=== PATIENT | female | born 1965 | race Caucasian/White ===

== ENCOUNTER 2017-10-09 15:29 | Emergency (ER) | payer SELFPAY ==
[2017-10-09 15:52] LABS: Bilirubin Negative (Negative); Blood, Urine Large (Negative); Clarity CLOUDY (Clear); Glucose, Urine (Dipstick) >=1000 mg/dL (Negative); Leukocyte Negative (Negative); Nitrite Negative (Negative); Protein, Urine (Dipstick) Negative (Neg-Trace); Specific Gravity, Urine 1.042 (1.002-1.036); Urobilinogen 0.2 mg/dL (0.2-1.0)
[2017-10-09 15:58] LABS: Bacteria/HPF None Seen HPF (None Seen); Hyaline Casts/LPF 0-3 HYALINE CAST LPF (0-3 Hyaline); Pathc Cast-AUWi Flag 0.72 (0-2.49); RBC/HPF GREATER THAN 50-TNTC HPF (0-3); Squamous Epithelial 0-3 HPF (0-3)
[2017-10-09] MEDS ORDERED: Ketorolac Tromethamine 30 MG/ML VIAL ONE (16:45)
[2017-10-09 16:55] LABS: #Eosinphils 0.2 thou/uL (0.0-0.7); #Monocytes 0.3 thou/uL (0.11-0.59); #Neutrophils 3.6 thou/uL (1.40-6.50); %Basophils 0.4 % (0.0-1.0); %Eosinophils 3.5 % (0.0-10.0); %Monocytes 4.5 % (0.0-10.0); %Neutrophils 58.5 % (42.0-75.0); Hemoglobin 12.6 g/dL (12.0-16.0); Mean Corpuscular HGB CONC 32.2 g/dL (32.0-36.0); Mean Corpuscular Hemoglobin 26.4 pg (27.0-31.0); Mean Platelet Volume 9.1 fL (7.4-10.4); Platelet Count 261 thou/uL (130-400); RBC Distribution Width 13.4 % (11.5-14.5); Red Blood Cell (RBC) Count 4.79 mill/uL (4.20-5.40); White Blood Cell (WBC) Count 6.1 thou/uL (4.8-10.8)
[2017-10-09 17:18] LABS: ALT (SGPT) 20 U/L (8-55); AST (SGOT) 24 U/L (5-34); Albumin 3.7 g/dL (3.5-5.0); Alkaline Phosphatase 126 U/L (40-150); Anion Gap 16 mmol/L (10-20); BUN (Urea Nitrogen) 11 mg/dL (7.0-18.7); Bilirubin, Total 0.2 mg/dL (0.2-1.2); Calc. Creatinine Clearance 0 mL/min (70-130); Calcium 9.5 mg/dL (7.8-10.44); Carbon Dioxide 20 mmol/L (22-29); Chloride 101 mmol/L (98-107); Estimated GFR-MDRD 63; Globulin 3.9 g/dL (2.4-3.5); Glucose 512 mg/dL (70-105); Lipase 23 U/L (8-78); Potassium 4.6 mmol/L (3.5-5.1); Protein, Total 7.6 g/dL (6.0-8.3); Sodium 132 mmol/L (136-145)
--- NOTE | 2017-10-09 17:43 | CT ---
ABDOMEN CT WITHOUT CONTRAST PELVIC CT WITHOUT CONTRAST 10/09/17 HISTORY: Pain. Left flank pain, radiating to the back. COMPARISON: 12/21/11. TECHNIQUE: Abdomen and pelvic CT performed without contrast. Coronal reformatted images are submitted for interp retation. FINDINGS: Lung bases demonstrate areas of scar and atelectasis. Heart size is normal. No pericardial effusion. The descending thoracic aorta and abdominal have a normal caliber. No periaortic fat stranding. Gallbladder is surgically absent. Limited evaluation of the solid organs by lack of IV contrast. Garrett ssly, no solid organ abnormalities. No gastrohepatic, retrocrural or periportal lymphadenopathy. No mesenteric mass, lymphadenopathy, jaiden e air of free fluid. Bilaterally, no hydronephrosis, nephrolithiasis, or perinephric fat stranding. Bilateral ureters have a normal caliber. No hydroureter, periureteral fat stranding or ureterolithiasis. Limited evaluation of the alimentary canal by the lack of oral contrast. No evidence of bowel obstruc tion. Normal ileocecal junction. Normal caliber appendix. Scattered fecal material in a nondistended, nondilated colon. Occasional diverticulum. No diverticulitis. PELVIC CT: The uterus and right adnexa are unremarkable. Hypodensity in the left adnexa has an attenuation coeff icient of 22 Hounsfield units and measures 2.8 x 1.6 cm. No pelvic lymphadenopathy, free air or free fluid. No lytic or blastic lesions within the osseous structures. IMPRESSION: 1. No evidence of nephrolithiasis or obstructive uropathy. 2. Hypodensity in the left adnexa likely representing complex left ovarian cyst. Followup ultras ound in 8 to 10 weeks to ensure resolution. If cyst remains, then PROGRAM SPECIALIST consultation is recommended. POS: [facility]
== END 2017-10-09 19:09 | disposition home or self-care (01) ==
LOC: ERS 15:29
DX: S39.011A Strain of muscle, fascia and tendon of abdomen, initial encounter (principal); X58.XXXA Exposure to other specified factors, initial encounter
CPT/HCPCS: 36415; 74176; 80053; 81003; 81015; 83690; 85025; 96361; 96374; J1885

== ENCOUNTER 2018-09-03 10:07 | Observation (INO) | payer SELFPAY ==
[2018-09-03] MEDS ORDERED: Aspirin Chewable 81 MG TAB ONE (10:51)
[2018-09-03] MEDS ORDERED: Ondansetron PF 4 MG/2 ML Vial ONE (10:51)
[2018-09-03] MEDS ORDERED: Nitroglycerin 0.4 MG TAB 1 EACH ONE (10:51)
--- NOTE | 2018-09-03 10:54 | RAD ---
PORTABLE CHEST: Date: 09/03/18 HISTORY: Chest pain. FINDINGS: Lungs are clear. Heart and mediastinum unremarkable. Vasculature normal. IMPRESSION: No acute findings. POS: [facility]
[2018-09-03 10:59] LABS: #Basophils 0.1 thou/uL (0.0-0.2); #Eosinphils 0.4 thou/uL (0.0-0.7); #Lymphocytes 4.1 thou/uL (1.20-3.40); #Monocytes 0.5 thou/uL (0.11-0.59); #Neutrophils 4.3 thou/uL (1.40-6.50); %Basophils 1.1 % (0.0-1.0); %Eosinophils 4.3 % (0.0-10.0); %Lymphocytes 43.6 % (21.0-51.0); %Monocytes 5.4 % (0.0-10.0); %Neutrophils 45.5 % (42.0-75.0); Hemoglobin 14.3 g/dL (12.0-16.0); Mean Corpuscular HGB CONC 32.2 g/dL (32.0-36.0); Mean Corpuscular Hemoglobin 26.4 pg (27.0-31.0); Mean Corpuscular Volume 82.1 fL (78.0-98.0); Mean Platelet Volume 10.2 fL (7.4-10.4); Platelet Count 247 thou/uL (130-400); RBC Distribution Width 14.1 % (11.5-14.5); Red Blood Cell (RBC) Count 5.42 mill/uL (4.20-5.40); White Blood Cell (WBC) Count 9.5 thou/uL (4.8-10.8)
[2018-09-03 11:27] LABS: ALT (SGPT) 19 U/L (8-55); AST (SGOT) 29 U/L (5-34); Albumin 4.2 g/dL (3.5-5.0); Alkaline Phosphatase 110 U/L (40-150); Anion Gap 17 mmol/L (10-20); BUN (Urea Nitrogen) 14 mg/dL (9.8-20.1); Bilirubin, Total 0.5 mg/dL (0.2-1.2); Calc. Creatinine Clearance 0 mL/min (70-130); Calcium 10.6 mg/dL (7.8-10.44); Carbon Dioxide 20 mmol/L (22-29); Chloride 100 mmol/L (98-107); Estimated GFR-MDRD 56; Globulin 4.4 g/dL (2.4-3.5); Glucose 430 mg/dL (70-105); Lipase 18 U/L (8-78); Protein, Total 8.6 g/dL (6.0-8.3); Sodium 132 mmol/L (136-145)
[2018-09-03] MEDS ORDERED: ISOVUE-370 76%-LOCM 1 ML ONE (12:04)
[2018-09-03] MEDS ORDERED: Nitroglycerin 2% Ointment 1 INCH/1 GM Packet ONE (12:12)
--- NOTE | 2018-09-03 12:25 | CT ---
CT ANGIO OF CHEST PERFORMED WITH IV CONTRAST ENHANCEMENT WITH 3D RECONSTRUCTIONS: Date: 09/03/18 HISTORY: Chest pain. FINDINGS: The lungs are clear of any infiltrative process. There are no pulmonary nodules identified. No pleura l effusions. Thoracic aorta is normal in caliber. Pulmonary arteries show fair opacifications. Smaller peripheral emboli are not excluded. I see no CT evidence for pulmonary embolus. Visualized liver parenchyma shows no focal findings. IMPRESSION: No CT evidence for pulmonary embolus. POS: [facility]
[2018-09-03 14:28] VITALS: BMI 42.2
[2018-09-03 14:28] LABS: Troponin I Less than 0.010 ng/mL (< 0.028)
[2018-09-03] MEDS ORDERED: Guaifenesin DM 100-10/5 ML UDCUP PO PRN (16:28)
[2018-09-03] MEDS ORDERED: Benzonatate 100 MG CAP PO PRN (16:32)
[2018-09-03] MEDS ORDERED: Nitroglycerin 0.4 MG TAB (25 Tab Bottle) SL PRN (16:32)
[2018-09-03] MEDS ORDERED: Ondansetron PF 4 MG/2 ML Vial IVP PRN (16:32)
[2018-09-03] MEDS ORDERED: Acetaminophen 500 MG TAB PO PRN (16:32)
[2018-09-03] MEDS ORDERED: hydrALAZINE 20 MG/ML VIAL SLOW IVP PRN (16:32)
[2018-09-03] MEDS ORDERED: Dextrose 50% Abboject 50 ML SYRINGE SLOW IVP PRN (17:02)
[2018-09-03] MEDS ORDERED: Dextrose 5% in Water 1,000 ML IV PRN (17:02)
[2018-09-03] MEDS ORDERED: HumaLOG 300 UNITS/3 ML VIAL SC PRN (17:02)
[2018-09-03 17:47] LABS: Troponin I Less than 0.010 ng/mL (< 0.028)
[2018-09-03] MEDS: metFORMIN 500 MG TAB PO SCH (21:09)
[2018-09-03] MEDS ORDERED: Aspirin/APAP/Caffeine Tab (Excedrin Migraine) PO PRN (21:17)
[2018-09-04] MEDS ORDERED: traMADol HCl 50 MG TAB PO PRN (00:09)
--- NOTE | 2018-09-04 01:19 | HP ---
CHIEF COMPLAINT: Chest pain. HISTORY OF PRESENT ILLNESS: The patient is a 53-year-old female with past medical history significant for obesity, type 2 diabetes mellitus diagnosed in January of 2018, and hypertension, who presented to the hospital with complaints of chest pain. The patient states that initially the chest discomfort began yesterday evening when she was washing dishes. She described it as someone sitting on her chest. Associated symptoms included nausea, she denies any shortness of breath, sweating, or dizziness. The pain did resolve on its own at that time. The patient went to bed, but throughout the night, she was awakened by similar chest pain that she describes as pressure. She presented to the ER this morning for further workup and treatment. EKG on arrival showed sinus rhythm with no acute ST or T-wave changes. Her serial troponin has been negative x2. CTA was negative for PE or acute process. She did say that her chest pain was relieved with sublingual nitroglycerin in the emergency room. The patient states that she has had a stress test years ago that was normal, but has not had any recent workup. PAST MEDICAL HISTORY: Gastroesophageal reflux disease, type 2 diabetes mellitus , hypertension, and obesity. PAST SURGICAL HISTORY: 1. Status post x2. 2. Status post cholecystectomy. CURRENT MEDICATIONS: 1. Metformin 1000 mg tablet one tablet p.o. b.i.d. 2. Lisinopril 10 mg one tablet daily. ALLERGIES: HYDROMORPHONE. FAMILY HISTORY: Positive for coronary artery disease in her mother, otherwise noncontributory. SOCIAL HISTORY: The patient denies any alcohol, tobacco, or illicit drug use. She lives with her daughter and grandson, who is 4 years old in [place]. REVIEW OF SYSTEMS: A 12-point review of systems is performed and is negative except that stated above. The patient specifically denies any fever, chills, recent illnesses, blood in urine or stool. PHYSICAL EXAMINATION: VITAL SIGNS: Blood pressure 139/86, temperature 98.2, pulse is 95, respirations 16, O2 saturation 95%. HEAD: Atraumatic, normocephalic. GENERAL: This is an obese female, resting comfortably in bed, in no acute distress. HEENT: Mucous membranes are moist. No discharge present. SKIN: Warm, dry. Negative for rash or abrasions. NECK: Trachea is midline. No JVD. No carotid bruits. CV: S1, S2. Regular rate and rhythm. No appreciable murmurs, rubs, or gallops. LUNGS: Regular respiratory rate and pattern. Clear to auscultation bilaterally. No rhonchi or wheezes. ABDOMEN: Soft. Positive bowel sounds. Nontender. EXTREMITIES: No edema. +2 DP pulses bilaterally. MUSCULOSKELETAL: No joint effusions or swelling. LABORATORY DATA: White blood cell count 9.5, RBC 5.42, hemoglobin 14.3. Chemistry, sodium of 132, potassium 5.0, chloride 100, anion gap 17, BUN 14, creatinine 1.03, glucose is 401. Troponin is negative x2. Albumin 4.2. Lipase 18. ASSESSMENT: 1. Chest pain in a patient with numerous risk factors including type 2 diabetes, hypertension, and obesity, with typical and atypical features. Her HEART score is 4. 2. Type 2 diabetes mellitus, diagnosed in January 2018, blood sugars uncontrolled in the hospital thus far. 3. Obesity. 4. Hypertension. 5. Full code status. PLAN: We will admit the patient for ACS rule out. Continue p.r.n. nitrates. We will perform a nuclear stress test to rule out reversible ischemia given her risk factors and presenting symptoms. Continue telemetry monitoring. Obtain AIc and fasting lipid panel in the morning. Job ID: [id number] [id number]
[2018-09-04 05:13] LABS: #Basophils 0.1 thou/uL (0.0-0.2); #Eosinphils 0.5 thou/uL (0.0-0.7); #Lymphocytes 3.4 thou/uL (1.20-3.40); #Monocytes 0.3 thou/uL (0.11-0.59); #Neutrophils 2.8 thou/uL (1.40-6.50); %Basophils 0.9 % (0.0-1.0); %Eosinophils 6.5 % (0.0-10.0); %Monocytes 4.6 % (0.0-10.0); Hemoglobin 13.3 g/dL (12.0-16.0); Mean Corpuscular HGB CONC 32.1 g/dL (32.0-36.0); Mean Corpuscular Hemoglobin 26.9 pg (27.0-31.0); Mean Corpuscular Volume 83.8 fL (78.0-98.0); Mean Platelet Volume 9.7 fL (7.4-10.4); Platelet Count 221 thou/uL (130-400); Red Blood Cell (RBC) Count 4.96 mill/uL (4.20-5.40)
[2018-09-04 05:35] LABS: Anion Gap 11 mmol/L (10-20); BUN (Urea Nitrogen) 14 mg/dL (9.8-20.1); Calc. Creatinine Clearance 169 mL/min (70-130); Calcium 9.5 mg/dL (7.8-10.44); Carbon Dioxide 23 mmol/L (22-29); Chloride 103 mmol/L (98-107); Estimated GFR-MDRD 85; Glucose 241 mg/dL (70-105); Sodium 133 mmol/L (136-145)
[2018-09-04] MEDS: metFORMIN 500 MG TAB PO SCH (08:30)
[2018-09-04] MEDS ORDERED: Lisinopril 10 MG TAB PO SCH (09:00)
--- NOTE | 2018-09-04 13:57 | NM ---
STRESS ONLY MYOCARDIAL PERFUSION STUDY: DATE: 09/04/2018. HISTORY: Chest pain, history of hypertension and dyslipidemia as well as diabetes mellitus. COMPARISON: 09/28/2011. FINDINGS: There is normal uptake and distribution of radiotracer seen throughout the left ventricular myocardiu m on the stress acquisition. There is no defect seen to suggest ischemia or area of scarring. The q uantitative analysis also shows no significant defect. Gated images show normal ventricular wall motion and wall thickening. The calculated left ventricula r ejection fraction is 73%. Calculated left ventricular ejection fraction on the prior study in 2011 was 56%. IMPRESSION: 1. Normal stress-only myocardial perfusion study without evidence of a defect seen to suggest ischem ia or scarring. 2. Normal left ventricular ejection fraction of 73%. POS: [facility]
[2018-09-04 16:08] VITALS: BP 115/63; TEMP 98.4
--- NOTE | 2018-09-04 16:16 | EKG ---
Test Reason : CHEST PAIN Blood Pressure : / mmHG Vent. Rate : 080 BPM Atrial Rate : 080 BPM P-R Int : 186 ms QRS Dur : 074 ms QT Int : 398 ms P-R-T Axes : 074 030 049 degrees QTc Int : 459 ms Normal sinus rhythm Low voltage QRS Borderline ECG When compared with ECG of 03-SEP-2018 10:14, (Unconfirmed) Nonspecific T wave abnormality, improved in Anterolateral leads QT has lengthened Confirmed by DR. Fiona CACERES ([id number]) on 09/04/2018 4:16:23 PM Referred By: Confirmed By:DR. Fiona CACERES
--- NOTE | 2018-09-04 18:51 | DIS ---
DATE OF ADMISSION: 09/03/2018 DATE OF DISCHARGE: 09/04/2018 ALLERGIES: HYDROMORPHONE. CHIEF COMPLAINT: Chest pain. FINAL DIAGNOSES: 1. Chest pain, atypical, acute coronary syndrome ruled out. Nuclear stress test was negative for reversible ischemia. CTA was negative for PE. 2. Uncontrolled diabetes mellitus with A1c of 12%. 3. Hypertension. 4. Gastroesophageal reflux disease. 5. Obesity. PROCEDURES PERFORMED: None. LABORATORY RESULTS: White blood cell count 7, RBC 4.96, hemoglobin 13, MCH 26.9. Sodium 133, potassium 4, chloride 103, BUN 14, creatinine 0.72. Hemoglobin A1c 12%. Troponin negative x2. IMAGING RESULTS: CTA showed some lungs clear of any infiltrative process. No pulmonary nodules identified. No pleural effusions and no CT evidence for pulmonary embolism. Chest x-ray showed no acute findings. Myocardial perfusion study showed normal stress thallium myocardial perfusion study without evidence of a defect seen to suggest ischemia or scarring. Normal left ventricular ejection fraction of 73%. No evidence to suggest ischemia or scar. CONSULTATIONS: None. HOSPITAL COURSE: The patient is a 53-year-old female with past medical history significant for obesity, type 2 diabetes mellitus, and hypertension, who presented to the hospital with complaints of chest pain. She states that the chest pain initially came on when she was washing dishes. She described it as pressure. She also had some associated nausea. She denies any shortness of breath, swelling, or dizziness. The pain resolved, but came back after she had been asleep overnight. Apparently, the pain awakened her from sleep. She presented to the ER the following morning for further workup and treatment. EKG on arrival showed normal sinus rhythm with no acute ST or T-wave changes. Her serial troponin was negative. CTA was negative for PE or acute process. As mentioned above, CTA was negative. Her myocardial perfusion imaging study was negative for reversible ischemia. The patient's blood sugars were uncontrolled during her stay. Her A1c was 12%. The patient's chest pain has resolved. She denies any headache, nausea, or vomiting. She has no shortness of breath. She has ambulated in the room without issue. CONDITION AT DISCHARGE: Stable. PHYSICAL EXAMINATION: VITAL SIGNS: Blood pressure 115/63. The patient is afebrile, pulse is 82, O2 saturation is 96% on room air, respirations are 16. GENERAL: The patient is an obese female, resting comfortably in bed. No acute distress. HEENT: Mucous membranes are moist. No discharge present. SKIN: Warm and dry. Negative for rash or abrasions. NECK: Trachea is midline. No JVD. No carotid bruits. CV: S1, S2. Regular rhythm. No appreciable murmurs, rubs, or gallops. LUNGS: Regular respiratory rate and pattern. Clear to auscultation bilaterally. No rhonchi or wheezes. ABDOMEN: Soft, positive bowel sounds. Nontender. EXTREMITIES: No edema. +2 DP pulses bilaterally. MUSCULOSKELETAL: No joint effusions or swelling. DISCHARGE MEDICATIONS: 1. Metformin 1000 mg p.o. b.i.d. 2. Lisinopril 10 mg one p.o. daily. 3. The addition of glyburide will be a new medication for her of 2.5 mg tablet one tablet p.o. daily. DISCHARGE DISPOSITION: Home. PLAN: The patient has been counseled extensively regarding her diabetes management. She has already made an appointment with her primary care physician to discuss implementation of insulin. She has been counseled on the importance of a diabetic diet. She will also benefit from aspirin and statin given her diabetes diagnosis. Job ID: [id number]
--- NOTE | 2018-09-05 16:35 | EKG ---
Test Reason : CP Blood Pressure : / mmHG Vent. Rate : 103 BPM Atrial Rate : 103 BPM P-R Int : 174 ms QRS Dur : 080 ms QT Int : 306 ms P-R-T Axes : 007 043 096 degrees QTc Int : 400 ms Sinus tachycardia Confirmed by ROSA CORRALES DO ([id number]), newspaper photo editor NATHAN DEUTSCH ([id number]) on 09/05/2018 4:34:48 PM Referred By: Confirmed By:ROSA CORRALES DO
== END 2018-09-04 17:16 | disposition home or self-care (01) ==
LOC: ERS 10:07 → 2SW 12:42
PROVIDERS: ADMIT Family Medicine; ATTEND Family Medicine
DX: R07.89 Other chest pain (principal); E11.9 Type 2 diabetes mellitus without complications; I10 Essential (primary) hypertension; K21.9 Gastro-esophageal reflux disease without esophagitis; E66.9 Obesity, unspecified; Z68.41 Body mass index [BMI] 40.0-44.9, adult; Z79.84 Long term (current) use of oral hypoglycemic drugs; Z79.899 Other long term (current) drug therapy
CPT/HCPCS: 36415; 36416; 71045; 71275; 78452; 80048; 80053; 83036; 83690; 84484; 85025; 93005; 93010; 93017; 96374; A9500; G0378; J0153; J2405; Q9966

== ENCOUNTER 2019-01-28 06:49 | Inpatient (IN) | payer SELFPAY ==
[2019-01-28 08:37] LABS: Troponin I Less than 0.010 ng/mL (< 0.028)
[2019-01-28] MEDS ORDERED: Ondansetron ODT 4 MG TAB PO PRN (09:12)
[2019-01-28] MEDS ORDERED: Dextrose 50% Abboject 50 ML SYRINGE SLOW IVP PRN (09:21)
[2019-01-28] MEDS ORDERED: Dextrose 5% in Water 1,000 ML IV PRN (09:21)
[2019-01-28] MEDS: Sodium Chloride 0.9% 1,000 ML IV SCH (09:45)
--- NOTE | 2019-01-28 10:07 | HP ---
PRIMARY CARE PHYSICIAN: Priscilla Corral MD CHIEF COMPLAINT: Chest pain. HISTORY OF PRESENT ILLNESS: Ms. Gonzalez is a 53-year-old woman with a known history of hypertension and diabetes, who presented to the emergency department at [place] with complaints of chest pain 10/10 that started at 2:30 a.m. this morning while playing cards. The patient states the pain started on the right side of her chest and radiated across the left and was associated with epigastric pain as well as nausea. The patient began dry heaving and denies any vomiting. She states the pain remained constant until she arrived to [place] and was given nitroglycerin as well as aspirin. The patient did drop her blood pressure to the low 100s and high 90s. Therefore, the nitro paste was discontinued. The patient states it did help to ease her pain down toward 4/10, but she has carried on with constant pain described as sharp and worse with inspiration. She did undergo a CT angiogram of the chest, which showed no evidence of PE or other intrathoracic abnormalities. She states the pain is much worse than the pain she has experienced in the past. She was seen in August 2018 with chest pain at which time she underwent a stress test, which was unremarkable. She had an EF estimated at 73%. The patient states she has been feeling well on recent days and denies having any vomiting or changes with her stools. She has had a normal appetite and states she does struggle to maintain a proper diet due to her income. She has been struggling to control her diabetes and has been working with her primary care physician. Currently, she is on metformin 1000 mg twice daily and glyburide 2.5 mg daily. She states she is compliant with her medications. She has not noted any recent cough or hemoptysis. No fevers, chills, or sweats. Has otherwise felt well in herself in recent days. REVIEW OF SYSTEMS: All other review of systems are negative. She has undergone trending of her troponins, which have all been negative. Her BNP was checked as well and this was normal at less than 10. LFTs are unremarkable. Full blood count normal. PAST MEDICAL HISTORY: 1. Diabetes. 2. Hypertension. 3. Obesity. PAST SURGICAL HISTORY: 1. Cholecystectomy. 2. x2. SOCIAL HISTORY: The patient is said to be a former drug user and former tobacco user. Today, the patient denies drinking any alcohol, using any drugs, and states she does not smoke. ALLERGIES: HYDROMORPHONE. CURRENT MEDICATIONS: 1. Lisinopril. 2. Metformin. 3. Glyburide. PHYSICAL EXAMINATION: GENERAL: The patient appears obese, well developed, and in no acute distress. VITAL SIGNS: Temperature 97.9, pulse respirations 18, O2 saturation 96% on room air, blood pressure 131/79. HEENT: Normocephalic and atraumatic. Pupils are equal, round, and reactive to light. Sclerae without icterus. Oropharynx is clear. NECK: Supple. LUNGS: Clear to auscultation bilaterally without any wheezes, rales, or rhonchi. No chest wall tenderness with palpation. CARDIAC: Regular rate and rhythm. ABDOMEN: Soft. Epigastric discomfort with palpation. No guarding or rigidity. No renal angle tenderness. EXTREMITIES: No lower leg swelling or edema. NEUROLOGIC: Alert and oriented x3. SKIN: Without rash or jaundice. LABORATORY DATA: Investigations as mentioned above. IMPRESSION AND PLAN: Ms. Gonzalez is a 53-year-old woman, who has been referred for management of the following. 1. Chest pain. She is under undergoing investigations for ACS rule out. Cardiac enzymes are negative. EKG done in the emergency department at [place], which showed normal sinus rhythm with a heart rate of 90, no ST changes. T-waves were inverted on lead III and aVF. 2. The patient has undergone recent stress test in August. Therefore, we will not repeat a stress test. Given the fact that her pain is persistent and worsening with frequent admissions in the past, we will place a consultation to Cardiology. It is, however, likely that her pain is more GI related; however, she does have risk factors. We will also check urine drug screen. 3. Nausea and vomiting. This has resolved. She does still have epigastric discomfort. LFTs unremarkable. We will add on a lipase. 4. Gastrointestinal prophylaxis. 5. Deep venous thrombosis prophylaxis with mechanical sequential compression devices. The patient is ambulatory. 6. Code status full. Her surrogate decision maker is her daughter, Eunice Sparrow. The patient's case to be discussed with Dr. Levin for further recommendations. Job ID: [id number]
[2019-01-28 10:10] LABS: Alcohol Less than 10 mg/dL (Less than 10); Lipase 20 U/L (8-78); Magnesium 1.9 mg/dL (1.6-2.6)
[2019-01-28 10:21] LABS: Troponin I Less than 0.010 ng/mL (< 0.028)
[2019-01-28 11:30] VITALS: BMI 43.2
[2019-01-28] MEDS: Acetaminophen 325 MG TAB PO PRN (11:50)
[2019-01-28 12:58] LABS: Troponin I Less than 0.010 ng/mL (< 0.028)
[2019-01-28 14:46] LABS: Bilirubin Negative (Negative); Blood, Urine Negative (Negative); Clarity Clear (Clear); Glucose, Urine (Dipstick) Greater than 1000 mg/dL (Negative); Leukocyte Negative Leu/uL (Negative); Nitrite Negative (Negative); Protein, Urine (Dipstick) Negative (Neg-Trace); Squamous Epithelial 0-3 HPF (0-3); Urobilinogen Normal mg/dL (Less than 2); WBC/HPF 0-3 HPF (0-3)
[2019-01-28 14:55] LABS: Bacteria/HPF Rare-Few HPF (None Seen); Yeast-Budding 1+ HPF (None Seen)
[2019-01-28 15:00] LABS: Urine Culture Reflex No No
[2019-01-28 15:04] LABS: Amphetamine Not Detected (NotDetected); Barbiturates Screen Not Detected (NotDetected); Benzodiazepine Screen Not Detected (NotDetected); Cocaine Metabolite Screen Not Detected (NotDetected); Medtox Control Line Valid? VALID (VALID); Medtox Reader # READER 1; Methadone Not Detected (NotDetected); Methamphetamine Not Detected (NotDetected); Opiate Screen Not Detected (NotDetected); Oxycodone Screen Not Detected (NotDetected); Phencyclidine (PCP) Not Detected (NotDetected); THC/Cannabinoid Screen Not Detected (NotDetected); Tricyclic Screen Not Detected (NotDetected)
[2019-01-28] MEDS: HumaLOG 300 UNITS/3 ML VIAL SC PRN ×2 (17:30→21:52)
[2019-01-28] MEDS ORDERED: Ketorolac Tromethamine 30 MG/ML VIAL IVP SCH (19:45)
[2019-01-28] MEDS: Famotidine/PF 20 mg/2ml Vial SLOW IVP SCH (19:52)
[2019-01-28] MEDS ORDERED: Communication Order-Pharmacy FS SCH (21:15)
[2019-01-29] MEDS: Sodium Chloride 0.9% 1,000 ML IV SCH (01:32)
--- NOTE | 2019-01-29 04:22 | CON ---
DATE OF CONSULTATION: HISTORY: Susu Gonzalez is a 53-year-old white female, who was admitted with chest discomfort. In September 2011, she was admitted with chest discomfort and Cardiolite test was normal. She also was admitted in August 2018 with chest pain and again , a Cardiolite scan was normal. Then, early this morning, she was playing cards at 2:30 a.m. and began to have chest pain, 10/10. The pain was pleuritic in nature, went from the right side of her chest to the left side. This was associated with diaphoresis, nausea, and retching. She denied any shortness of breath. Went to the hospital in [place] and was given nitroglycerin, topical nitrates, and a pain patch. She states that the discomfort eased from 10/10 to 4/10 at that time with the intense pain lasting continuously for 3-1/2 hours. She states that she has continued to have intermittent chest discomfort while being here with each episode lasting approximately 10 minutes. Cardiac enzymes have been unremarkable. PAST MEDICAL HISTORY: Diabetes and hypertension. She denies any history of hypercholesterolemia. Obesity. PAST SURGICAL HISTORY: Cholecystectomy and x2. SOCIAL HISTORY: She does not smoke or drink. She apparently was a drug abuser in the past. MEDICATIONS: 1. Metformin 750 mg daily. 2. Lisinopril 10 mg daily. 3. Glyburide. ALLERGIES: HYDROMORPHONE (DILAUDID). REVIEW OF SYSTEMS: A 10-point review of systems is otherwise unremarkable. PHYSICAL EXAMINATION: VITAL SIGNS: Blood pressure 124/84 and pulse of 84. HEENT: PERRL. NECK: Supple. CHEST: Clear. CARDIAC: S1 and S2 normal without any S3, S4, or murmurs. There was no rub. ABDOMEN: Obese. Normal bowel sounds. No tenderness. EXTREMITIES: Revealed no clubbing, cyanosis, or edema. NEUROLOGIC: Grossly intact. SKIN: Warm and dry. MUSCULOSKELETAL: Revealed no palpable chest wall tenderness. LABORATORY DATA: EKG reveals normal sinus rhythm and is unremarkable. Cardiac enzymes with troponin I x5 are all normal. Hemoglobin 14.1, hematocrit 43.9, white count 8700, and platelets 240,000. D-dimer 0.33. BNP less than 10.0. Sodium 137, potassium 4.1, chloride 100, carbon dioxide 23, BUN 11, creatinine 0.93, and glucose 432. IMPRESSION: Atypical chest discomfort with pleuritic chest pain lasting for hours with negative cardiac enzymes. At the present time with a deep breath, she does not appear to have any worsening of her discomfort. She also has no positional change in the pressure and I doubt that this represents pericarditis. However, this is her second admission in the last five months for chest pain. She also was admitted in September 2011 with chest discomfort. She has had two normal Cardiolite. With multiple admissions for chest discomfort, even though her current symptoms appear not be cardiac in nature, it probably would be prudent to have her undergo cardiac catheterization with multiple cardiac risk factors. We discussed the risks of catheterization including , myocardial infarction, dye reaction, vascular injury, CVA, transfusion, limb loss, renal loss, etc. Also risks of intervention with PTCA and stent placement were discussed including , myocardial infarction, emergent CABG, restenosis, stent thrombosis, vessel perforation, etc. She has no history of gastrointestinal bleeding or stroke and has no upcoming surgical procedures. We did discuss the absolute need to take Plavix for one year, which she agrees to do and therefore, a drug-eluting stent will be placed if required. Job ID: [id number]
[2019-01-29 05:17] LABS: #Eosinphils 0.5 thou/uL (0.0-0.7); #Lymphocytes 3.1 thou/uL (1.20-3.40); #Monocytes 0.4 thou/uL (0.11-0.59); #Neutrophils 2.6 thou/uL (1.40-6.50); %Basophils 0.7 % (0.0-1.0); %Eosinophils 7.1 % (0.0-10.0); %Lymphocytes 46.5 % (21.0-51.0); %Neutrophils 39.6 % (42.0-75.0); Hemoglobin 12.3 g/dL (12.0-16.0); Mean Corpuscular HGB CONC 32.4 g/dL (32.0-36.0); Mean Corpuscular Hemoglobin 27.3 pg (27.0-31.0); Mean Corpuscular Volume 84.5 fL (78.0-98.0); Mean Platelet Volume 10.1 fL (7.4-10.4); Platelet Count 193 thou/uL (130-400); RBC Distribution Width 13.2 % (11.5-14.5); White Blood Cell (WBC) Count 6.6 thou/uL (4.8-10.8)
[2019-01-29 05:46] LABS: Anion Gap 10 mmol/L (10-20); BUN (Urea Nitrogen) 18 mg/dL (9.8-20.1); Calc. Creatinine Clearance 170 mL/min (70-130); Calcium 9.2 mg/dL (7.8-10.44); Carbon Dioxide 24 mmol/L (22-29); Cardiac Risk 4.7 (Less than 4.5); Chloride 103 mmol/L (98-107); Cholesterol 187 mg/dl (< 200 Desired); Estimated GFR-MDRD 84; Glucose 281 mg/dL (70-105); HDL Cholesterol 40 mg/dL (>60 Neg Risk); LDL Cholesterol, Calculated 115 mg/dL; Potassium 4.1 mmol/L (3.5-5.1); Sodium 133 mmol/L (136-145); Triglycerides 162 mg/dL (Less than 150)
[2019-01-29] MEDS ORDERED: Sodium Chloride 0.9% 1,000 ML IV SCH ×2 (06:00→15:12)
[2019-01-29] MEDS: Lisinopril 10 MG TAB PO SCH (06:14)
[2019-01-29] MEDS: Famotidine 20 MG TAB PO SCH ×2 (06:14→22:29)
[2019-01-29] MEDS ORDERED: Heparin 10,000 UNITS/1 ML VIAL ONE (07:44)
[2019-01-29] MEDS ORDERED: Lidocaine 1% (PF) 30 ML VIAL ONE (07:45)
[2019-01-29] MEDS: Famotidine/PF 20 mg/2ml Vial SLOW IVP SCH ×2 (09:00→21:25)
[2019-01-29] MEDS ORDERED: Iopamidol 370 76% 100 ML VIAL ONE (14:16)
[2019-01-29] MEDS ORDERED: Midazolam HCl 2 mg/2 ml Vial ONE (14:22)
[2019-01-29] MEDS ORDERED: Fentanyl 100 MCG/2 ML VIAL ONE (14:22)
[2019-01-29] MEDS ORDERED: Nitroglycerin 100MG/250ML BOT 250 ML ONE (14:40)
[2019-01-29] MEDS ORDERED: Protamine Sulfate 50 MG/5 ML VIAL ONE (14:53)
[2019-01-29] MEDS ORDERED: Aspirin 81 mg Enteric Coated Tablet PO SCH (15:00)
[2019-01-29] MEDS ORDERED: Diltiazem HCl SR 60 mg Capsule PO SCH (15:00)
[2019-01-29] MEDS ORDERED: Sodium Chloride 0.9% 200 ML IV PRN (15:11)
[2019-01-29] MEDS ORDERED: Nitroglycerin 0.4 MG TAB (25 Tab Bottle) SL PRN (15:11)
[2019-01-29] MEDS ORDERED: ISOVUE-370 76%-LOCM 1 ML ONE (16:06)
[2019-01-29] MEDS ORDERED: Labetalol HCl 100 MG/20 ML VIAL ONE (16:34)
--- NOTE | 2019-01-29 16:41 | CT ---
CT BRAIN WITHOUT CONTRAST: HISTORY: Expressive aphasia. Left-sided paralysis FINDINGS: No evidence of acute infarct, hemorrhage, midline shift or abnormal extra-axial fluid collections is seen. The ventricular size is appropriate and the basilar cisterns are patent. The bony calvarium is intact. The visualized paranasal sinuses and mastoid air cells are well aerated. IMPRESSION: No CT evidence of acute intracranial process. Discussed over the phone with ER physician Dr. Ames at 4:38 PM
[2019-01-29 17:02] LABS: INR-International Normal Ratio 0.9; Prothrombin Time 12.5 SEC (12.0-14.7)
[2019-01-29 17:03] LABS: PTT 21.8 SEC (22.9-36.1)
[2019-01-29] MEDS ORDERED: Ziprasidone 20 MG VIAL IM PRN (17:40)
[2019-01-29] MEDS ORDERED: Labetalol HCl 100 MG/20 ML VIAL SLOW IVP PRN ×2 (17:43→17:59)
[2019-01-29] MEDS ORDERED: Lorazepam 1 MG TAB PO PRN (17:43)
[2019-01-29] MEDS ORDERED: Ziprasidone 20 MG VIAL IM SCH (17:45)
[2019-01-29] MEDS ORDERED: hydrALAZINE 20 MG/ML VIAL ONE (17:50)
[2019-01-29] MEDS: Lorazepam 2 MG/ML VIAL SLOW IVP PRN (17:54)
[2019-01-29] MEDS ORDERED: Lorazepam 2 MG/ML VIAL ONE (17:54)
--- NOTE | 2019-01-29 18:14 | CT ---
CT ANGIOGRAM BRAIN WITH IV CONTRAST AND 3D RECONSTRUCTIONS: CT ANGIOGRAM NECK WITH IV CONTRAST AND 3D RECONSTRUCTIONS: HISTORY: Expressive aphasia and left-sided paralysis. The patient is not following commands. The patient is post heart catheterization today. COMPARISON: Noncontrast CT head also obtained on the date prior to this exam. FINDINGS: There is artifact seen at the base of the neck, which limits evaluation of the arterial vessels in th is region. Primarily the origin of the left vertebral artery, although this does appear grossly roque nt. The right vertebral artery is patent and dominant. There is a normal arrangement of the great vessels at the aortic arch, which are patent. A portion o f the right subclavian artery is obscured using dense contrast in the right subclavian. The bilateral common carotid, as well as the bilateral internal and external carotid arteries are pat ent. Minimal vascular calcifications are seen at the carotid artery bifurcation on the right. The bilateral middle cerebral and anterior cerebral arteries are patent without a focal stenosis or b ranch occlusion. The anterior communicating artery is visualized and appears patent. The vertebrobasilar arteries are patent. Bilateral posterior cerebral arteries are patent. No aneurysm is seen within the limitations of the technique of this exam. IMPRESSION: 1. The bilateral carotid arteries are patent. 2. No focal stenosis or branch occlusion is seen involving the [place] or vertebrobasil ar system. 3. The above findings were discussed with Dr. Ames in the emergency department on 01/29/2019 at 1708 hours. POS: [facility]
[2019-01-29] MEDS ORDERED: Lorazepam 2 MG/ML VIAL SLOW IVP SCH (20:15)
[2019-01-29] MEDS: HumaLOG 300 UNITS/3 ML VIAL SC PRN (21:25)
[2019-01-29] MEDS: Ondansetron PF 4 MG/2 ML Vial IVP PRN (21:25)
[2019-01-29] MEDS: Atorvastatin Calcium 40 MG TAB PO SCH (21:44)
[2019-01-29] MEDS: Acetaminophen 650 MG Suppository PR PRN (23:59)
[2019-01-30] MEDS: Piperacillin/Tazobactam 4.5 GM in Sodium Chloride 0.9% 100 ML IVPB SCH ×4 (01:27→21:14)
[2019-01-30] MEDS ORDERED: Labetalol HCl 100 MG/20 ML VIAL SLOW IVP SCH (02:00)
[2019-01-30] MEDS: Vancomycin HCl 1.75 GM in Sodium Chloride 0.9% 500 ML IVPB SCH ×2 (02:09→14:47)
[2019-01-30] MEDS ORDERED: Vancomycin HCl 1.75 GM in Sodium Chloride 0.9% 250 ML 300 ML IVPB SCH (03:00)
[2019-01-30 04:56] LABS: Lactic Acid 2.9 mmol/L (0.5-2.2)
[2019-01-30] MEDS: Acetaminophen 650 MG Suppository PR PRN ×2 (06:11→21:13)
[2019-01-30] MEDS: HumaLOG 300 UNITS/3 ML VIAL SC PRN ×2 (06:11→12:11)
[2019-01-30] MEDS: Aspirin 81 mg Enteric Coated Tablet PO SCH (07:54)
[2019-01-30] MEDS: Famotidine 20 MG TAB PO SCH ×2 (07:54→21:14)
[2019-01-30] MEDS: Lisinopril 10 MG TAB PO SCH (07:54)
--- NOTE | 2019-01-30 08:05 | PDOC.HOSPP ---
- Subjective Encounter Date: 01/29/19 Encounter Time: 17:00 Subjective: Ms. Gonzalez was seen in due to a code green . She recently returned from cardiac cath. After being on the floor for about 45 minutes, she became unresponsive, and staring to to the right. She would not move her left upper extremity. - Objective Vital Signs & Weight: Vital Signs (12 hours) Temp Pulse BP 01/30/19 07:26 100.3 F H 01/30/19 05:30 101.8 F H 01/30/19 01:52 108 H 208/133 H 01/30/19 01:00 100.6 F H 01/29/19 23:28 101.8 F H 01/29/19 23:22 108 H 208/133 H Weight Weight 257 lb 15.053 oz Most Recent Monitor Data Heart Rate from ECG 101 NIBP 167/102 NIBP BP-Mean 123 Respiration from ECG 29 SpO2 93 I&O: 01/29/19 01/30/19 01/31/19 06:59 06:59 06:59 Intake Total 2191 1304 Output Total 925 Balance 2191 379 Result Diagrams: 01/29/19 04:49 01/29/19 04:49 Additional Labs: Accuchecks 01/29/19 01/29/19 01/29/19 17:59 16:21 11:17 POC Glucose 341 H 237 H 273 H ROS - Medication Medications: Active Medications Generic Name Dose Route Start Last Admin Trade Name Freq PRN Reason Stop Dose Admin Acetaminophen 650 mg 01/28/19 09:12 01/28/19 11:50 Tylenol PO 650 mg Q4H PRN Administration Headache/Fever/Mild Pain (1-3) Acetaminophen 650 mg 01/28/19 09:12 01/30/19 06:11 Tylenol [place] 650 mg Q4H PRN Administration Headache/Fever/Mild Pain (1-3) Aspirin 81 mg 01/30/19 09:00 01/30/19 07:54 Ecotrin PO Not Given DAILY [facility] Atorvastatin Calcium 40 mg 01/29/19 21:00 01/29/19 21:44 Lipitor PO Not Given HS [facility] Diltiazem HCl 180 mg 01/30/19 09:00 01/30/19 07:54 Cardizem Cd PO Not Given DAILY [facility] Famotidine 20 mg 01/28/19 21:00 01/29/19 21:25 Pepcid SLOW IVP 20 mg Q12HR CH[facility]STAL Administration Famotidine 20 mg 01/29/19 09:00 01/30/19 07:54 Pepcid PO Not Given BID [facility] Piperacillin Sod/Tazobactam 100 mls @ 200 mls/hr 01/30/19 02:00 01/30/19 01: 27 Sod 4.5 gm/ Sodium Chloride IVPB 100 mls 0200,0800,1400,2000 [facility]AL Administration Vancomycin HCl 1.75 gm/ Sodium 500 mls @ 250 mls/hr 01/30/19 03:00 01/30/19 02:09 Chloride IVPB 500 mls 0300,1500 [facility] Administration Insulin Human Lispro 0 units 01/28/19 09:21 01/30/19 06:11 Humalog SC 4 units .MILD SLIDING SCALE PRN Administration Mild Correctional Scale Insulin Human Lispro 0 units 01/28/19 09:21 01/29/19 21:25 Humalog SC 5 unit .BEDTIME SLIDING SC PRN Administration Bedtime Correctional Scale Isosorbide Mononitrate 30 mg 01/30/19 09:00 01/30/19 07:54 Imdur Er PO Not Given DAILY [facility] Labetalol HCl 20 mg 01/29/19 17:59 01/29/19 23:22 Normodyne SLOW IVP 4 ml Q4H PRN Administration SBP>180 Lisinopril 10 mg 01/29/19 09:00 01/30/19 07:54 Zestril PO Not Given DAILY [facility] Lorazepam 1 mg 01/29/19 19:15 01/29/19 17:54 Ativan SLOW IVP 1 mg Q4H PRN Administration Agitation Ondansetron HCl 4 mg 01/28/19 09:12 01/29/19 21:25 Zofran IVP 4 mg Q6H PRN Administration Nausea/Vomiting Sodium Chloride 10 ml 01/28/19 09:12 01/29/19 21:23 Flush - Normal Saline IVF 10 ml Q12HR PRN Administration Saline Flush - Exam Eye: PERRL, anicteric sclera Heart: RRR, no murmur, no gallops, no rubs, normal peripheral pulses Respiratory: CTAB, no wheezes, no rales, no ronchi, normal chest expansion Gastrointestinal: soft, non-tender, non-distended, normal bowel sounds Extremities: no edema Neurological: speech deficit (Aphasic, with left sided neglect,) Hosp A/P (1) Altered mental status Code(s): R41.82 - ALTERED MENTAL STATUS, UNSPECIFIED Status: Acute (2) Hypertension Code(s): I10 - ESSENTIAL (PRIMARY) HYPERTENSION Status: Acute (3) Coronary artery disease Code(s): I25.10 - ATHSCL HEART DISEASE OF [place] CORONARY ARTERY W/O ANG PCTRS Status: Acute (4) Diabetes mellitus type 2 in obese Code(s): E11.69 - TYPE 2 DIABETES MELLITUS WITH OTHER SPECIFIED COMPLICATION; E66.9 - OBESITY, UNSPECIFIED Status: Acute - Plan * Altered mental status- feared acute CVA - patient was sent for stat CT scan of the brain, and well as CTA- these were negative. While in CT scan the patient became agitated and was moving all extremities. She also began to yell. The decision was made not to give TPA, due to the recent cardiac cath, and access to an artery, her elevated blood pressure, and that she was beginning to show improvement * She will be placed in the IMCU for closer monitoring * HTN- uncontrolled- will continue Cardizem and Lisinopril,as well as PRN medications * CAD- managed medically, and continue as per Cardiology recommendations * DM- continue SSI * Altered mental status- ? etiology- but it does not appear to be cerebral vascular in origin- will consider Neurology consult depending on how she is in the AM
[2019-01-30] MEDS: Famotidine/PF 20 mg/2ml Vial SLOW IVP SCH ×2 (08:24→21:14)
[2019-01-30 09:25] LABS: Anion Gap 20 mmol/L (10-20); BUN (Urea Nitrogen) 12 mg/dL (9.8-20.1); Calc. Creatinine Clearance 146 mL/min (70-130); Calcium 10.3 mg/dL (7.8-10.44); Carbon Dioxide 16 mmol/L (22-29); Chloride 103 mmol/L (98-107); Estimated GFR-MDRD 71; Glucose 280 mg/dL (70-105); Potassium 4.8 mmol/L (3.5-5.1); Sodium 134 mmol/L (136-145)
[2019-01-30 09:46] LABS: Hemoglobin 15.9 g/dL (12.0-16.0); Mean Corpuscular HGB CONC 33.7 g/dL (32.0-36.0); Mean Corpuscular Hemoglobin 27.9 pg (27.0-31.0); Mean Corpuscular Volume 82.8 fL (78.0-98.0); Mean Platelet Volume 10.3 fL (7.4-10.4); Platelet Count 227 thou/uL (130-400); RBC Distribution Width 13.6 % (11.5-14.5); Red Blood Cell (RBC) Count 5.71 mill/uL (4.20-5.40); White Blood Cell (WBC) Count 11.6 thou/uL (4.8-10.8)
--- NOTE | 2019-01-30 10:56 | PDOC.HOSPP ---
- Subjective Encounter Date: 01/30/19 Encounter Time: 10:51 Subjective: Ms. Gonzalez was seen today in follow-up of altered mental status. She is aphasic again today. She will not follow commands. - Objective Vital Signs & Weight: Vital Signs (12 hours) Temp Pulse BP Pulse Ox 01/30/19 08:00 94 L 01/30/19 07:26 100.3 F H 01/30/19 05:30 101.8 F H 01/30/19 01:52 108 H 208/133 H 01/30/19 01:00 100.6 F H 01/29/19 23:28 101.8 F H 01/29/19 23:22 108 H 208/133 H Weight Weight 257 lb 15.053 oz Most Recent Monitor Data Heart Rate from ECG 97 NIBP 158/98 NIBP BP-Mean 118 Respiration from ECG 34 SpO2 94 I&O: 01/29/19 01/30/19 01/31/19 06:59 06:59 06:59 Intake Total 2191 1304 Output Total 925 Balance 2191 379 Result Diagrams: 01/30/19 08:56 01/30/19 08:56 Additional Labs: Accuchecks 01/29/19 01/29/19 01/29/19 17:59 16:21 11:17 POC Glucose 341 H 237 H 273 H ROS - Medication Medications: Active Medications Generic Name Dose Route Start Last Admin Trade Name Freq PRN Reason Stop Dose Admin Acetaminophen 650 mg 01/28/19 09:12 01/28/19 11:50 Tylenol PO 650 mg Q4H PRN Administration Headache/Fever/Mild Pain (1-3) Acetaminophen 650 mg 01/28/19 09:12 01/30/19 06:11 Tylenol [place] 650 mg Q4H PRN Administration Headache/Fever/Mild Pain (1-3) Aspirin 81 mg 01/30/19 09:00 01/30/19 07:54 Ecotrin PO Not Given DAILY [facility] Atorvastatin Calcium 40 mg 01/29/19 21:00 01/29/19 21:44 Lipitor PO Not Given HS [facility] Diltiazem HCl 180 mg 01/30/19 09:00 01/30/19 07:54 Cardizem Cd PO Not Given DAILY [facility] Famotidine 20 mg 01/28/19 21:00 01/30/19 08:24 Pepcid SLOW IVP 20 mg Q12HR [facility]STAL Administration Famotidine 20 mg 01/29/19 09:00 01/30/19 07:54 Pepcid PO Not Given BID [facility] Piperacillin Sod/Tazobactam 100 mls @ 200 mls/hr 01/30/19 02:00 01/30/19 08: 23 Sod 4.5 gm/ Sodium Chloride IVPB 100 mls 0200,0800,1400,2000 CH[facility]STAL Administration Vancomycin HCl 1.75 gm/ Sodium 500 mls @ 250 mls/hr 01/30/19 03:00 01/30/19 02:09 Chloride IVPB 500 mls 0300,1500 [facility]STAL Administration Insulin Human Lispro 0 units 01/28/19 09:21 01/30/19 06:11 Humalog SC 4 units .MILD SLIDING SCALE PRN Administration Mild Correctional Scale Insulin Human Lispro 0 units 01/28/19 09:21 01/29/19 21:25 Humalog SC 5 unit .BEDTIME SLIDING SC PRN Administration Bedtime Correctional Scale Isosorbide Mononitrate 30 mg 01/30/19 09:00 01/30/19 07:54 Imdur Er PO Not Given DAILY [facility] Labetalol HCl 20 mg 01/29/19 17:59 01/29/19 23:22 Normodyne SLOW IVP 4 ml Q4H PRN Administration SBP>180 Lisinopril 10 mg 01/29/19 09:00 01/30/19 07:54 Zestril PO Not Given DAILY [facility] Lorazepam 1 mg 01/29/19 19:15 01/29/19 17:54 Ativan SLOW IVP 1 mg Q4H PRN Administration Agitation Ondansetron HCl 4 mg 01/28/19 09:12 01/29/19 21:25 Zofran IVP 4 mg Q6H PRN Administration Nausea/Vomiting Sodium Chloride 10 ml 01/28/19 09:12 01/29/19 21:23 Flush - Normal Saline IVF 10 ml Q12HR PRN Administration Saline Flush - Exam Heart: RRR, no murmur, no gallops, no rubs, normal peripheral pulses Respiratory: CTAB, no wheezes, no rales, no ronchi, normal chest expansion, no tachypnea Gastrointestinal: soft, non-tender, non-distended, normal bowel sounds, no palpable masses, no hepatomegaly Extremities: no cyanosis, no edema Neurological: speech deficit (aphasia) Musculoskeletal: normal tone, no muscle wasting Psychiatric: flat affect Hosp A/P (1) Altered mental status Code(s): R41.82 - ALTERED MENTAL STATUS, UNSPECIFIED Status: Acute (2) Hypertension Code(s): I10 - ESSENTIAL (PRIMARY) HYPERTENSION Status: Acute (3) Coronary artery disease Code(s): I25.10 - ATHSCL HEART DISEASE OF [place] CORONARY ARTERY W/O ANG PCTRS Status: Acute (4) Diabetes mellitus type 2 in obese Code(s): E11.69 - TYPE 2 DIABETES MELLITUS WITH OTHER SPECIFIED COMPLICATION; E66.9 - OBESITY, UNSPECIFIED Status: Acute - Plan * Altered mental status- ? TIA- agree with repeat CT scan - Neurology has been consulted, and work-up is in progress. * Continue to monitor in the ICU * Fever- agree with empiric antibiotics, and blood cultures are pending * IF the CT scan is negative consider ID consult * HTN- uncontrolled- will increase the dose of Lisinopril- and continue PRN's * CAD- managed medically, and continue as per Cardiology recommendations * DM- continue SSI
[2019-01-30] MEDS ORDERED: cloNIDine 0.2mg/24 Hour PATCH TD SCH (12:00)
[2019-01-30] MEDS: Lorazepam 2 MG/ML VIAL SLOW IVP PRN (13:12)
--- NOTE | 2019-01-30 13:17 | CT ---
EXAM: CT brain without contrast HISTORY: Confusion and left-sided weakness COMPARISON: 01/29/2019 TECHNIQUE: Multiple contiguous axial images were obtained and a CT of the brain without contrast. FINDINGS: The brain is normal in morphology and attenuation without focal lesions or confluent areas of infarction. There is no evidence of hydrocephalus, intracranial hemorrhage, or extra-axial fluid collection. The calvarium and overlying soft tissues are unremarkable. The visualized paranasal sinuses and masto id air cells are well aerated. IMPRESSION: No evidence of acute intracranial abnormality
--- NOTE | 2019-01-30 14:51 | PDOC.CTH ---
Cardiology Progress Note - Subjective No new issues. Remains unresponsive. - Objective Vital Signs Temp Pulse Ox 01/30/19 11:23 98.7 F 01/30/19 08:00 94 L 01/30/19 07:26 100.3 F H 01/30/19 05:30 101.8 F H Weight 257 lb 15.053 oz 01/29/19 01/30/19 01/31/19 06:59 06:59 06:59 Intake Total 2191 1304 Output Total 925 Balance 2191 379 - Physical Examination General/Neuro: other: (Non verbal. ) Neck: no JVD present Lungs: CTA, unlabored respirations Heart: RRR Abdomen: NT/ND Extremities: + edema B (trace) - Telemetry Telemetry Rhythm: NSR - Labs Result Diagrams: 01/30/19 08:56 01/30/19 08:56 Troponin/CKMB Troponin I Less than 0.010 ng/mL (< 0.028) 01/28/19 12:23 - Assessment/Plan 1. Mild CAD. 2. Altered mental status. PLAN: - No new recs. - CV stable.
--- NOTE | 2019-01-30 17:21 | CON ---
DATE OF CONSULTATION: 01/30/2019 Telemedicine consultation on 01/30/2019 with registered nurse, Lenny Martinez. CHIEF COMPLAINT: Loss of consciousness and change in mental status. HISTORY OF PRESENT ILLNESS: Daughter gave medical history and also history was obtained from the nurse. The patient had no neurological issues at the time of admission. She came in with chest pain and she had a cardiac cath at 3 p.m. yesterday following which she became unresponsive and code stroke was called in due to sudden change in her mental status and level of alertness, and she had code green events documented starting on 01/29/2019 at 10:45 p.m. and she had cardiac cath at 1530 hours and at 1617 hours, the patient is unresponsive and code green was initiated at 1617 hours yesterday, and I reviewed the code green note. The patient was last seen normal at 3:45 p.m., and blood glucose was at 237 during the code green and she had significant left-sided weakness at that time. NIH Stroke Scale documented was 28 at [address] head was completed at 1635 hours yesterday, and today Neurology consultation was requested for evaluation. PREVIOUS MEDICAL HISTORY: The patient has history of diabetes and hypertension. SOCIAL HISTORY: The patient does not smoke or drink alcohol. PREVIOUS SURGICAL HISTORY: Cholecystectomy, two C-sections. ALLERGIES: HYDROMORPHONE. MEDICATIONS AT HOME: Lisinopril, metformin, and glyburide. REVIEW OF SYSTEMS: Unobtainable due to patient's mental status. FAMILY HISTORY: Father at age 72. He had CVAs and diabetes. Mother is 71. She has dementia. The patient has 2 brothers and 2 sisters and all are relatively healthy. LABORATORY DATA: White count 11.6, hemoglobin 15.9, hematocrit 47.3, platelet count 227. Chemistry; sodium 134, potassium 4.8, chloride 103, bicarbonate 16, BUN 12, creatinine 0.84, glucose 280, lactic acid 2.9. Cholesterol 242, triglycerides 80, LDL 165, HDL 61. TSH 0.5006 and urine tox was negative. Her CT angiography performed yesterday in the midnight did not show any focal stenosis involving [place]. I requested a CT of the head this morning after I saw the patient at around 10:30 a.m. and once again, CT of the head does not show any acute intracranial abnormality. Her echocardiogram was normal except for mild atrial dilatation. PHYSICAL EXAMINATION: VITAL SIGNS: Temperature 98.7, blood pressure 168/100, pulse rate 91, respiratory rate 19. GENERAL APPEARANCE: Well-built, well-nourished, slightly obese lady, who is comfortable in bed, but when aroused, she opens her eyes and tends to move her right side spontaneously, is unable to move the left side of the body. She cannot follow commands. CHEST: Clear vesicular breathing. CARDIOVASCULAR: S1 and S2 heard. No murmurs. ABDOMEN: Soft and nontender. No organomegaly noted. NEUROLOGIC: Higher intellectual functions. She cannot follow commands. She is responsive. When requested, she can open her eyes, but has spontaneous handgrip on the right upper extremity. It is unclear if it is voluntary or involuntary. She has absent deep tendon reflexes. Good handgrip on the right side. She cannot move her left side at all and deep tendon reflexes were absent. Sensory and cerebellar were unable to assess. IMPRESSION: The patient is a 53-year-old lady with less sudden onset, unresponsiveness and generalized weakness on the left face, arm, and leg starting last evening after cardiac cath. Her examination shows normal pupillary reaction at 3 mm and they were reactive to light. She has spontaneous movement on the right side, but none on the left side. She has absent reflexes, and CT scans and CT angiogram are negative. I suspect possible pointing event rather than an MCA territory event. We are unable to get an MRI due to issues with her inability to be still. Even Ativan given was stopped within a few minutes per RN. She might have to be intubated for MRI. On this time, we can wait on the MRI. Her current diagnosis is most consistent with possible brainstem CVA. RECOMMENDATIONS: 1. Please monitor the patient for any further changes, of most importance would be presence of any seizure activity. 2. Continue recommendations from her advertising campaign manager for anti-platelet therapy for cardiac as well and as far as INSURANCE COORDINATOR events, he can put her on aspirin for stroke prophylaxis and I will follow up the patient with you tomorrow. Hopefully, we can get an MRI tomorrow to establish her diagnosis. Job ID: [id number]
[2019-01-30] MEDS: Atorvastatin Calcium 40 MG TAB PO SCH (21:14)
[2019-01-31] MEDS: Ondansetron PF 4 MG/2 ML Vial IVP PRN ×3 (00:17→22:07)
[2019-01-31] MEDS: Lorazepam 2 MG/ML VIAL SLOW IVP PRN ×2 (00:17→11:02)
[2019-01-31] MEDS: Piperacillin/Tazobactam 4.5 GM in Sodium Chloride 0.9% 100 ML IVPB SCH ×4 (02:16→20:57)
[2019-01-31] MEDS: Vancomycin HCl 1.75 GM in Sodium Chloride 0.9% 500 ML IVPB SCH ×3 (04:05→18:26)
[2019-01-31] MEDS: HumaLOG 300 UNITS/3 ML VIAL SC PRN ×3 (06:11→22:07)
[2019-01-31] MEDS: Acetaminophen 325 MG TAB PO PRN (07:52)
[2019-01-31] MEDS: Aspirin 81 mg Enteric Coated Tablet PO SCH (08:00)
[2019-01-31] MEDS: Famotidine/PF 20 mg/2ml Vial SLOW IVP SCH ×3 (08:03→20:53)
[2019-01-31] MEDS: Lisinopril 20 MG TAB PO SCH (08:07)
[2019-01-31] MEDS: Famotidine 20 MG TAB PO SCH ×3 (08:09→20:53)
[2019-01-31] MEDS ORDERED: Morphine 2 MG/ML SYRINGE SLOW IVP SCH (09:15)
[2019-01-31] MEDS: Valproate Sodium 500 MG in Sodium Chloride 0.9% 100 ML IVPB SCH (11:43)
--- NOTE | 2019-01-31 13:00 | PRG ---
DATE OF SERVICE: 01/31/2019 This is a telemedicine followup note. Nurse accompanying is Pattie. CHIEF COMPLAINT: Possible stroke. INTERVAL HISTORY: The patient is stable and has started to improve since 2:00 a.m. this morning per nursing staff and she has been communicative and talking to the nurses and told them she remembers thinking she had a stroke and she was on a stretcher going to CT scan. This morning, the patient is conversant and is able to follow commands when asked to do so and she remained stable, and her laboratory workup as noted and CT angiography results showed no evidence of any stenotic vessel. PHYSICAL EXAMINATION: NEUROLOGICAL: Higher intellectual functions. Oriented to time, place, and person. Appropriate conversation and she follows commands. Cranial nerves 2 through 12, normal extraocular movements. Pupils 2 mm bilaterally, reactive to light. No facial asymmetry. Normal sensation of face bilaterally and tongue midline. Motor examination, bulk normal, tone normal. Strength 5/5 in both upper and lower extremities bilaterally and normal [id number] and [id number] bilaterally. She has some perseveration and kept repeating the same movement while we were testing the left [id number]-bo-terw. IMPRESSION: The patient is a 53-year-old lady with history of cardiac cath and suddenly deteriorating with regard to her mental status. At this time, we are waiting for an MRI scan and she is complaining of headache. Her examination currently is normal except for some slowness in processing time as well as perseveration with the left upper extremity. We still have not confirmed CVA. RECOMMENDATIONS: 1. Depakene for headache to help with her severity of pain in the head. 2. I will request an MRI of the brain to see if we do indeed have CVA in the [place] area. I am off call from tomorrow, please call Dr. Powell, if you have any further questions. Job ID: [id number]
--- NOTE | 2019-01-31 13:48 | PDOC.HOSPP ---
- Subjective Encounter Date: 01/31/19 Encounter Time: 13:45 Subjective: Patient seen and examined, family at bedside state that she's doing a bit better than earlier, no new issues, all questions answered. - Objective Vital Signs & Weight: Vital Signs (12 hours) Temp Pulse Resp BP BP Pulse Ox 01/31/19 13:13 112/72 01/31/19 12:14 83 15 102/62 98 01/31/19 11:30 122/104 H 01/31/19 11:06 97.4 F L 01/31/19 08:07 137/82 01/31/19 08:00 100 01/31/19 07:07 98.2 F 01/31/19 04:00 99.2 F Weight Weight 251 lb 9.6 oz Most Recent Monitor Data Heart Rate from ECG 94 NIBP 86/50 NIBP BP-Mean 62 Respiration from ECG 15 SpO2 96 I&O: 01/30/19 01/31/19 02/01/19 06:59 06:59 06:59 Intake Total 1304 Output Total 925 Balance 379 Result Diagrams: 01/30/19 08:56 01/30/19 08:56 Additional Labs: Accuchecks 01/31/19 01/31/19 01/30/19 10:25 06:12 21:35 POC Glucose 247 H 227 H 237 H 01/30/19 19:10 POC Glucose 230 H ROS - Medication Medications: Active Medications Generic Name Dose Route Start Last Admin Trade Name Freq PRN Reason Stop Dose Admin Acetaminophen 650 mg 01/28/19 09:12 01/31/19 07:52 Tylenol PO 650 mg Q4H PRN Administration Headache/Fever/Mild Pain (1-3) Acetaminophen 650 mg 01/28/19 09:12 01/30/19 21:13 Tylenol [place] 650 mg Q4H PRN Administration Headache/Fever/Mild Pain (1-3) Aspirin 81 mg 01/30/19 09:00 01/31/19 08:00 Ecotrin PO 81 mg DAILY [facility] Administration Atorvastatin Calcium 40 mg 01/29/19 21:00 01/30/19 21:14 Lipitor PO Not Given HS [facility] Clonidine 0.2 mg 01/30/19 12:00 01/30/19 12:13 [id number]-[id number]-4 TD 0.2 mg Q7DAYS@1200 CH[facility]STAL Administration Diltiazem HCl 180 mg 01/30/19 09:00 01/31/19 08:08 Cardizem Cd PO 180 mg DAILY [facility] Administration Famotidine 20 mg 01/28/19 21:00 01/31/19 08:28 Pepcid SLOW IVP Not Given Q12HR [facility] Famotidine 20 mg 01/29/19 09:00 01/31/19 08:28 Pepcid PO 20 mg BID [facility] Administration Piperacillin Sod/Tazobactam 100 mls @ 200 mls/hr 01/30/19 02:00 01/31/19 07: 55 Sod 4.5 gm/ Sodium Chloride IVPB 100 mls 0200,0800,1400,2000 [facility]AL Administration Vancomycin HCl 1.75 gm/ Sodium 500 mls @ 250 mls/hr 01/30/19 03:00 01/31/19 04:05 Chloride IVPB 500 mls 0300,1500 [facility]AL Administration Valproic Acid 500 mg/ Sodium 105 mls @ 210 mls/hr 01/31/19 12:00 01/31/19 11: 43 Chloride IVPB 105 mls Q12H [facility]AL Administration Insulin Human Lispro 0 units 01/28/19 09:21 01/31/19 06:11 Humalog SC 3 units .MILD SLIDING SCALE PRN Administration Mild Correctional Scale Insulin Human Lispro 0 units 01/28/19 09:21 01/29/19 21:25 Humalog SC 5 unit .BEDTIME SLIDING SC PRN Administration Bedtime Correctional Scale Isosorbide Mononitrate 30 mg 01/30/19 09:00 01/31/19 08:00 Imdur Er PO 30 mg DAILY [facility] Administration Labetalol HCl 20 mg 01/29/19 17:59 01/29/19 23:22 Normodyne SLOW IVP 4 ml Q4H PRN Administration SBP>180 Lisinopril 20 mg 01/31/19 09:00 01/31/19 08:07 Zestril PO 20 mg DAILY [facility] Administration Lorazepam 1 mg 01/29/19 19:15 01/31/19 11:02 Ativan SLOW IVP 1 mg Q4H PRN Administration Agitation Ondansetron HCl 4 mg 01/28/19 09:12 01/31/19 00:17 Zofran IVP 4 mg Q6H PRN Administration Nausea/Vomiting Sodium Chloride 10 ml 01/28/19 09:12 01/29/19 21:23 Flush - Normal Saline IVF 10 ml Q12HR PRN Administration Saline Flush - Exam NAD, awake alert General - other findings: obese Eye: PERRL, anicteric sclera ENT: normocephalic atraumatic, no oropharyngeal lesions Neck: supple, symmetric, no JVD Heart: RRR, no murmur, no gallops Respiratory: CTAB, no wheezes, no rales Gastrointestinal: soft, non-tender, non-distended Hosp A/P (1) Altered mental status Code(s): R41.82 - ALTERED MENTAL STATUS, UNSPECIFIED Status: Acute (2) Coronary artery disease Code(s): I25.10 - ATHSCL HEART DISEASE OF [place] CORONARY ARTERY W/O ANG PCTRS Status: Acute (3) Diabetes mellitus type 2 in obese Code(s): E11.69 - TYPE 2 DIABETES MELLITUS WITH OTHER SPECIFIED COMPLICATION; E66.9 - OBESITY, UNSPECIFIED Status: Acute (4) Hypertension Code(s): I10 - ESSENTIAL (PRIMARY) HYPERTENSION Status: Acute - Plan - cont current plan of care - neuro evaluation pending - MRI pending - AMS resolving slowly per family - will follow up with image results and subspecialist recs once available - case and plan d/w patient's family at length, they understood and agreed with this plan.
--- NOTE | 2019-01-31 14:42 | MRI ---
EXAM: MRI of the brain without contrast HISTORY: Stroke with continued confusion and left-sided weakness COMPARISON: None TECHNIQUE: Multiplanar multisequence MR images were obtained of the brain without IV contrast. FINDINGS: The brain demonstrates normal signal intensity on all obtained sequences. No restricted diffusion. No hydronephrosis. No extra-axial fluid collection or intracranial hemorrhage. The expected flow voids are present. Corpus callosum, pituitary, and craniocervical junction are within normal limits. The calvarium and overlying soft tissues are unremarkable. The paranasal sinuses and mastoid air cells are well aerated. IMPRESSION: No evidence of acute intracranial abnormality.
--- NOTE | 2019-01-31 15:34 | PDOC.CTH ---
Cardiology Progress Note - Subjective She is awake today and conversant. She denies any chest pain, tightness or pressure, no SOB. - Objective Vital Signs Temp Pulse Resp BP BP Pulse Ox 01/31/19 15:11 98.3 F 01/31/19 13:13 112/72 01/31/19 12:14 83 15 102/62 98 01/31/19 11:30 122/104 H 01/31/19 11:06 97.4 F L 01/31/19 08:07 137/82 01/31/19 08:00 100 01/31/19 07:07 98.2 F 01/31/19 04:00 99.2 F Weight 251 lb 9.6 oz 01/30/19 01/31/19 02/01/19 06:59 06:59 06:59 Intake Total 1304 Output Total 925 Balance 379 - Physical Examination General/Neuro: alert & oriented x3, NAD Neck: no JVD present Lungs: unlabored respirations Heart: RRR Abdomen: NT/ND Extremities: + edema B (trace) - Telemetry Telemetry Rhythm: NSR - Labs Result Diagrams: 01/30/19 08:56 01/30/19 08:56 Troponin/CKMB Troponin I Less than 0.010 ng/mL (< 0.028) 01/28/19 12:23 - Assessment/Plan 1. Mild CAD. 2. Altered mental status. Improved. PLAN: - No new recs. - CV stable.
[2019-01-31 16:01] LABS: Vancomycin, Trough 11.4 ug/mL
[2019-01-31] MEDS: Atorvastatin Calcium 40 MG TAB PO SCH (20:52)
[2019-02-01] MEDS: Valproate Sodium 500 MG in Sodium Chloride 0.9% 100 ML IVPB SCH ×2 (00:48→12:15)
[2019-02-01] MEDS: Piperacillin/Tazobactam 4.5 GM in Sodium Chloride 0.9% 100 ML IVPB SCH ×2 (02:54→10:52)
[2019-02-01 04:43] LABS: #Basophils 0.1 thou/uL (0.0-0.2); #Eosinphils 0.2 thou/uL (0.0-0.7); #Lymphocytes 2.4 thou/uL (1.20-3.40); #Monocytes 0.5 thou/uL (0.11-0.59); #Neutrophils 5.3 thou/uL (1.40-6.50); %Basophils 0.6 % (0.0-1.0); %Eosinophils 2.7 % (0.0-10.0); %Neutrophils 62.7 % (42.0-75.0); Hemoglobin 12.1 g/dL (12.0-16.0); Mean Corpuscular HGB CONC 33.8 g/dL (32.0-36.0); Mean Corpuscular Hemoglobin 28.3 pg (27.0-31.0); Mean Corpuscular Volume 83.5 fL (78.0-98.0); Mean Platelet Volume 8.9 fL (7.4-10.4); Platelet Count 209 thou/uL (130-400); RBC Distribution Width 13.6 % (11.5-14.5); Red Blood Cell (RBC) Count 4.29 mill/uL (4.20-5.40); White Blood Cell (WBC) Count 8.4 thou/uL (4.8-10.8)
[2019-02-01 04:52] LABS: ALT (SGPT) 8 U/L (8-55); AST (SGOT) 17 U/L (5-34); Albumin 3.3 g/dL (3.5-5.0); Alkaline Phosphatase 79 U/L (40-150); Anion Gap 12 mmol/L (10-20); BUN (Urea Nitrogen) 21 mg/dL (9.8-20.1); Bilirubin, Total 0.8 mg/dL (0.2-1.2); Calc. Creatinine Clearance 162 mL/min (70-130); Calcium 9.2 mg/dL (7.8-10.44); Carbon Dioxide 19 mmol/L (22-29); Chloride 107 mmol/L (98-107); Estimated GFR-MDRD 83; Globulin 3.1 g/dL (2.4-3.5); Glucose 192 mg/dL (70-105); Potassium 3.5 mmol/L (3.5-5.1); Protein, Total 6.4 g/dL (6.0-8.3); Sodium 134 mmol/L (136-145)
[2019-02-01] MEDS ORDERED: Cepastat Lozenges 1 LOZ PO PRN (04:52)
[2019-02-01] MEDS: HumaLOG 300 UNITS/3 ML VIAL SC PRN ×2 (05:44→12:15)
[2019-02-01] MEDS: Vancomycin HCl 1.75 GM in Sodium Chloride 0.9% 500 ML IVPB SCH (06:09)
[2019-02-01 09:20] VITALS: BP 137/82
[2019-02-01] MEDS: Aspirin 81 mg Enteric Coated Tablet PO SCH (09:20)
[2019-02-01] MEDS: Lisinopril 20 MG TAB PO SCH (09:20)
[2019-02-01] MEDS: Famotidine 20 MG TAB PO SCH (09:20)
[2019-02-01] MEDS: Famotidine/PF 20 mg/2ml Vial SLOW IVP SCH (09:20)
--- NOTE | 2019-02-01 11:09 | PDOC.HOSPP ---
- Subjective Encounter Date: 02/01/19 Encounter Time: 11:08 Subjective: alert, oriented, no complaints - Objective Vital Signs & Weight: Vital Signs (12 hours) Temp BP Pulse Ox 02/01/19 10:26 97.6 F 02/01/19 09:20 137/82 02/01/19 07:42 96 02/01/19 07:09 97.4 F L 02/01/19 04:00 97.5 F L 02/01/19 00:00 97.1 F L Weight Weight 262 lb 4.8 oz Most Recent Monitor Data Heart Rate from ECG 74 NIBP 111/65 NIBP BP-Mean 80 Respiration from ECG 16 SpO2 95 I&O: 01/31/19 02/01/19 02/02/19 06:59 06:59 06:59 Intake Total 1317 Output Total 500 Balance 817 Result Diagrams: 02/01/19 04:17 02/01/19 04:17 Additional Labs: Accuchecks 02/01/19 02/01/19 01/31/19 10:21 05:45 22:07 POC Glucose 206 H 197 H 211 H 01/31/19 16:47 POC Glucose 271 H ROS - Medication Medications: Active Medications Generic Name Dose Route Start Last Admin Trade Name Freq PRN Reason Stop Dose Admin Acetaminophen 650 mg 01/28/19 09:12 01/31/19 07:52 Tylenol PO 650 mg Q4H PRN Administration Headache/Fever/Mild Pain (1-3) Acetaminophen 650 mg 01/28/19 09:12 01/30/19 21:13 Tylenol [place] 650 mg Q4H PRN Administration Headache/Fever/Mild Pain (1-3) Aspirin 81 mg 01/30/19 09:00 02/01/19 09:20 Ecotrin PO 81 mg DAILY CHRYSTAL Administration Atorvastatin Calcium 40 mg 01/29/19 21:00 01/31/19 20:52 Lipitor PO 40 mg HS CHRYSTAL Administration Clonidine 0.2 mg 01/30/19 12:00 01/30/19 12:13 Qeziomgl-Wox-1 TD 0.2 mg Q7DAYS@1200 CHRYSTAL Administration Diltiazem HCl 180 mg 01/30/19 09:00 02/01/19 09:20 Cardizem Cd PO 180 mg DAILY CHRYSTAL Administration Famotidine 20 mg 01/28/19 21:00 02/01/19 09:20 Pepcid SLOW IVP Not Given Q12HR CHRYSTAL Famotidine 20 mg 01/29/19 09:00 02/01/19 09:20 Pepcid PO 20 mg BID CHRYSTAL Administration Valproic Acid 500 mg/ Sodium 105 mls @ 210 mls/hr 01/31/19 12:00 02/01/19 00: 48 Chloride IVPB 105 mls Q12H CHRYSTAL Administration Insulin Human Lispro 0 units 01/28/19 09:21 02/01/19 05:44 Humalog SC 2 units .MILD SLIDING SCALE PRN Administration Mild Correctional Scale Insulin Human Lispro 0 units 01/28/19 09:21 01/31/19 22:07 Humalog SC 2 unit .BEDTIME SLIDING SC PRN Administration Bedtime Correctional Scale Isosorbide Mononitrate 30 mg 01/30/19 09:00 02/01/19 09:20 Imdur Er PO 30 mg DAILY CHRYSTAL Administration Labetalol HCl 20 mg 01/29/19 17:59 01/29/19 23:22 Normodyne SLOW IVP 4 ml Q4H PRN Administration SBP>180 Lisinopril 20 mg 01/31/19 09:00 02/01/19 09:20 Zestril PO 20 mg DAILY CHRYSTAL Administration Lorazepam 1 mg 01/29/19 19:15 01/31/19 11:02 Ativan SLOW IVP 1 mg Q4H PRN Administration Agitation Ondansetron HCl 4 mg 01/28/19 09:12 01/31/19 22:07 Zofran IVP 4 mg Q6H PRN Administration Nausea/Vomiting Sodium Chloride 10 ml 01/28/19 09:12 01/29/19 21:23 Flush - Normal Saline IVF 10 ml Q12HR PRN Administration Saline Flush - Exam awake alert Neck: no JVD Heart: RRR, no murmur Respiratory: CTAB Gastrointestinal: soft, non-tender, normal bowel sounds Extremities: no edema Hosp A/P (1) Chest pain Code(s): R07.9 - CHEST PAIN, UNSPECIFIED Status: Acute Qualifiers: Chest pain type: chest pain on breathing Qualified Code(s): R07.1 - Chest pain on breathing; R07.81 - Pleurodynia (2) Encephalopathy acute Code(s): G93.40 - ENCEPHALOPATHY, UNSPECIFIED Status: Resolved (3) Coronary artery disease Code(s): I25.10 - ATHSCL HEART DISEASE OF [place] CORONARY ARTERY W/O ANG PCTRS Status: Chronic Qualifiers: Coronary Disease-Associated Artery/Lesion type: [place] artery [place] vs. transplanted heart: [place] heart Associated angina: without angina Qualified Code(s): I25.10 - Atherosclerotic heart disease of [place] coronary artery without angina pectoris (4) Diabetes mellitus type 2 in obese Code(s): E11.69 - TYPE 2 DIABETES MELLITUS WITH OTHER SPECIFIED COMPLICATION; E66.9 - OBESITY, UNSPECIFIED Status: Chronic (5) Hypertension Code(s): I10 - ESSENTIAL (PRIMARY) HYPERTENSION Status: Chronic - Plan encphalopathyresolved, MRI brain neg mild CAD- ASA, statin DC planning cultures neg, DC antibx
[2019-02-01 15:13] VITALS: TEMP 97.8
--- NOTE | 2019-02-01 17:11 | DIS ---
DATE OF ADMISSION: 01/28/2019 DATE OF DISCHARGE: 02/01/2019 DISPOSITION: Discharged home. PRIMARY CARE PROVIDER: Dr. Corral. DISCHARGE DIAGNOSES: 1. Chest pain, resolved. 2. Encephalopathy, resolved. 3. Coronary artery disease. 4. Diabetes mellitus type 2. DISCHARGE MEDICATIONS: 1. Atorvastatin 40 mg a day. 2. Clonidine TTS-2 0.2 mg on skin, change every 7 days. 3. Cardizem CD 180 once a day. 4. Imdur 30 once a day. 5. Nitroglycerin 0.4 mg q.5 minutes p.r.n., three at a time max. 6. Aspirin 81 mg a day. 7. Lisinopril 40 mg a day. ALLERGIES: DILAUDID. PENDING AT TIME OF DISCHARGE: Nothing. CODE STATUS: Full. DIET: Diabetic. HOSPITAL COURSE: The patient admitted to the hospital with chest pain. Her initial workup was unrevealing. CBC was unremarkable. Metabolic profile was unremarkable except for blood sugar of 432. Troponins were normal x4. The patient was seen in consultation by Dr. Martin Carbajal. The patient underwent a cardiac cath, proximal circumflex 20%, first obtuse marginal 20%, right coronary artery 74% stenosis, right coronary artery spasm, mild reduction in LVEF. Shortly afterward, the patient became unresponsive. Brain CT failed to show any evidence of lesion. CT angiography, carotid arteries patent, [place] is patent, vertebrobasilar system was patent. Echocardiogram revealed EF of 50% to 55%. The patient was seen in consultation by Elli Miles who recommended an MRI. MRI failed to reveal any lesion. The patient has steadily improved and at present time doing well. She has no focal abnormality. She is oriented. Cranial nerves 2 through 12 are intact. Deep tendon reflexes symmetric. There is no hemiplegia. Toes are upgoing bilaterally. I have discussed the situation with her and her family. They are happy with being discharged home. CONSULTATIONS: Cardiology, Dr. Carbajal. Neurology, Dr. Miles. PROCEDURES: Cardiac cath. The patient has been asked to call Dr. Carbajal's office to arrange followup. She is to follow up with her PCP in 7 days. Prescriptions have been written. 40 minutes spent preparing this discharge. Job ID: [id number]
--- NOTE | 2019-02-03 09:52 | PQF ---
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 Clinical indicators are provided on the bottom of this form for your review Please check appropriate box(s): [ x ] Encephalopathy: Type: [x ] Acute [ ] Subacute [ ] Chronic Etiology: [x ] Metabolic [ ] Toxic [ ] Unspecified [ ] in the setting of underlying dementia [ ] Other (please specify) [ ] Other diagnosis [ ] Unable to determine For continuity of documentation, please document condition throughout progress notes and discharge summary. Thank You. CLINICAL INDICATORS - SIGNS / SYMPTOMS / LABS Altered mental status - Documented in Hospital PNs on 01/30/19 by Luis Moore MD it does not appear to be cerebral vascular in origin - Documented in Hospital PNs on 01/30/19 by Luis Moore MD Encephalopathy Resolved - Documented in Discharge summary on 02/01/19 by yaritza Loredo MD metobolic profile was unremarkable except for blood sugar of 432, troponin were normal*4 -Discharge summary on 02/01/19 by yaritza Loredo MD RISK FACTORS Hypertension - Documented in H&P on 01/28/19 by Lucila Jackson CAD - Documented in Discharge summary on 02/01/19 by yaritza Loredo MD TREATMENTS: She will placed in the IMCU for closer monitoring - Documented in Hospital PNs on 01/30/19 by Luis Moore MD Will consider neurology consult depending on how she is in the AM - Documented in Hospital PNs on 01/30/19 by Luis Moore MD MRI brain Negative - Documented in Hospital PNs on 02/01/19 by yaritza Loredo MD [facility]
== END 2019-02-01 17:31 | disposition home or self-care (01) | DRG 286 ==
LOC: ERS 06:49 → OBSVTOIN 07:20 → ERHOLD 07:20 → 2SW 07:49 → 2SE 01-29 16:58 → IMCU/EMU 01-29 17:24
PROVIDERS: ADMIT Internal Medicine; ATTEND Internal Medicine
PROC: 4A023N7 Measurement of Cardiac Sampling and Pressure, Left Heart, Percutaneous Approach (ICD-10-PCS; principal; 2019-01-28)
PROC: B2111ZZ Fluoroscopy of Multiple Coronary Arteries using Low Osmolar Contrast (ICD-10-PCS; 2019-01-28)
PROC: B2151ZZ Fluoroscopy of Left Heart using Low Osmolar Contrast (ICD-10-PCS; 2019-01-28)
DX: I25.10 Atherosclerotic heart disease of native coronary artery without angina pectoris (principal); G93.41 Metabolic encephalopathy; Z68.41 Body mass index [BMI] 40.0-44.9, adult; I10 Essential (primary) hypertension; E11.69 Type 2 diabetes mellitus with other specified complication; R41.82 Altered mental status, unspecified; E66.9 Obesity, unspecified; Z90.49 Acquired absence of other specified parts of digestive tract; Z79.84 Long term (current) use of oral hypoglycemic drugs; Z88.8 Allergy status to other drugs, medicaments and biological substances
CPT/HCPCS: 36415; 36416; 70450; 70496; 70498; 70551; 80048; 80053; 80061; 80202; 80306; 80307; 81001; 82140; 83605; 83690; 83735; 84443; 85025; 85379; 85610; 85730; 87040; 93306; 93458; 99152; 99153; 99285; C1769; C1887; J0360; J1644; J1885; J2001; J2060; J2250; J2270; J2405; J2543; J2720; J3010; J3370; J3490; J7050; Q0162; Q9966; Q9967; S0028

== ENCOUNTER 2019-02-03 07:37 | Observation (INO) | payer SELFPAY ==
[2019-02-03] MEDS ORDERED: Nitroglycerin 2% Ointment 1 INCH/1 GM Packet ONE (07:58)
[2019-02-03 08:55] LABS: CKMB 0.8 ng/mL (0-6.6)
[2019-02-03 10:33] VITALS: BMI 41.8
[2019-02-03] MEDS ORDERED: Ondansetron ODT 4 MG TAB SL PRN (11:10)
[2019-02-03] MEDS ORDERED: Nitroglycerin 0.4 MG TAB (25 Tab Bottle) PO PRN (11:35)
[2019-02-03] MEDS ORDERED: Lidocaine 2% Viscous Solution 10 ML, Aluminum & Magnesium Hydroxide 30 ML SSW SCH (11:45)
[2019-02-03 12:05] LABS: Troponin I 0.065 ng/mL (< 0.028)
[2019-02-03] MEDS: Ondansetron PF 4 MG/2 ML Vial IVP PRN ×2 (12:30→21:28)
[2019-02-03] MEDS ORDERED: Dextrose 5% in Water 1,000 ML IV PRN (13:21)
[2019-02-03] MEDS ORDERED: Dextrose 50% Abboject 50 ML SYRINGE SLOW IVP PRN (13:21)
[2019-02-03 14:23] LABS: BHCG - Serum Negative (NEGATIVE); Pregs Control Background? CLEAR/WHITE (CLR/WHITE); Pregs Control Bar Appear? YES (CONTROL BAR)
[2019-02-03 14:32] LABS: Troponin I 0.074 ng/mL (< 0.028)
--- NOTE | 2019-02-03 15:33 | HP ---
PRIMARY CARE PROVIDER: Priscilla Corral MD CHIEF COMPLAINT: Chest pain. HISTORY OF PRESENT ILLNESS: Ms. Gonzalez is a pleasant 53-year-old lady, who was seen at [facility] on February 03, 2019. She was hospitalized at this facility from January 28 to of this year for chest pain. She underwent cardiac catheterization and was found to have proximal circumflex 20%, first obtuse marginal 20%, right coronary artery 70% stenoses as well as right coronary artery spasm. She became unresponsive following cardiac catheterization. She had stroke workup, which was negative. She improved and was discharged home. She reports that she was awake around midnight last night when she started having chest pain. She describes it as a burning sensation in the retrosternal region as well as epigastric region. She also reports that it radiated to both sides of her chest and upper abdomen. She denies any fevers or chills. She reports nausea. She reports that the pain is currently 8/10. She cannot recall any aggravating or relieving factors for the pain. REVIEW OF SYSTEMS: All systems were reviewed and were noted to be negative except for the pertinent positives mentioned above. PAST MEDICAL HISTORY: Coronary artery disease; diabetes mellitus, type 2; and hypertension. PAST SURGICAL HISTORY: Cholecystectomy, section x2, and glaucoma surgery. SOCIAL HISTORY: The patient denies tobacco use, alcohol use, or recreational drug use. FAMILY HISTORY: No family history of premature coronary artery disease. ALLERGIES: NO KNOWN DRUG ALLERGIES. HOME MEDICATIONS: As dictated by Dr. Hansen in his Discharge Summary dated February 01, 2019. PHYSICAL EXAMINATION: GENERAL: On examination, Ms. Gonzalez is awake and alert, not in acute distress. VITAL SIGNS: Blood pressure is 169/92, pulse 95, respiratory rate 18, and oxygen saturation 98% on room air. She is afebrile. She is morbidly obese, with a BMI of 41.8. EYES: No scleral icterus. No conjunctival pallor. ENT: Moist mucosal membranes. No oropharyngeal erythema or exudates. NECK: Supple and nontender. Trachea is midline. RESPIRATORY: Accessory muscles of breathing are not active. Chest wall movements are symmetric bilaterally. Lungs are clear to auscultation without wheeze, rhonchi, or crepitations. CARDIOVASCULAR: S1 and S2 are heard, regular. Peripheral pulses palpable. No carotid bruit. No pericardial rub. There is no reproducible chest wall tenderness. ABDOMEN: Mild epigastric tenderness. No guarding or rigidity. Bowel sounds are heard. NEUROLOGIC: Cranial nerves 2 through 12 are intact. MUSCULOSKELETAL: Power is 5/5 in all 4 extremities. SKIN: No rashes or subcutaneous nodules. LYMPHATIC: No cervical lymphadenopathy. PSYCHIATRIC: Normal mood. Normal affect. The patient is oriented to person, place, and time. LABORATORY DATA: Ms. Gonzalez' labs and investigations were reviewed. I reviewed her electrocardiogram, which shows normal sinus rhythm, no ST changes to suggest an acute coronary syndrome. I also reviewed her chest x-ray, which does not show any pulmonary infiltrates. She has an unremarkable CBC, D-dimer mildly elevated at 0.45, normal sodium, decreased potassium of 2.9, creatinine normal at 0.73, and an unremarkable liver profile. Troponin I is in the indeterminate range at 0.065. During her prior hospitalization, her troponins were less than 0.010. ASSESSMENT AND PLAN: Ms. Gonzalez is a pleasant 53-year-old lady, who was seen at [facility] on February 03, 2019. Her problem list includes: 1. Chest pain: Ms. Gonzalez is presenting with recurrent chest pain. She will be admitted to the hospital for further workup including rechecking her troponin I and monitoring on telemetry. Cardiology Service will be consulted for opinion and help with management. 2. Diabetes mellitus, type 2: We will start her on Accu-Cheks and insulin sliding scale. 3. Hypokalemia: We will replace potassium and recheck potassium level. 4. Hypertension: We will monitor vital signs and titrate antihypertensives as needed. Many thanks for allowing me to participate in your patient's care. Please feel free to contact me with any questions or concerns. LEVEL OF RISK: High. LEVEL OF COMPLEXITY: High. Job ID: [id number]
[2019-02-03] MEDS ORDERED: ISOVUE-370 76%-LOCM 1 ML ONE (15:51)
[2019-02-03] MEDS ORDERED: Lisinopril 20 MG TAB PO SCH (16:00)
[2019-02-03] MEDS ORDERED: Isosorbide Mononitrate (ER) 30 MG TAB PO SCH (16:00)
[2019-02-03] MEDS ORDERED: cloNIDine 0.2mg/24 Hour PATCH TD SCH (16:00)
[2019-02-03] MEDS ORDERED: Atorvastatin Calcium 40 MG TAB PO SCH (21:00)
[2019-02-03] MEDS: HumaLOG 300 UNITS/3 ML VIAL SC PRN (21:33)
--- NOTE | 2019-02-03 21:33 | CT ---
CTA Angio Chest W WO Con HISTORY: Chest pain elevated d-dimer. COMPARISON: 01/28/2019 study. FINDINGS: The lungs are clear of any infiltrative process. No pleural effusions or pulmonary nodules. The thoracic aorta is normal in caliber. There is no evidence for pulmonary embolus. There is fair pu lmonary artery opacification obtained. Visualized liver parenchyma shows no focal findings. IMPRESSION: No CT evidence for pulmonary embolus.
[2019-02-04] MEDS ORDERED: metFORMIN 500 MG TAB PO SCH (08:00)
[2019-02-04] MEDS ORDERED: Aspirin Chewable 81 MG TAB PO SCH (09:00)
[2019-02-04] MEDS ORDERED: Lisinopril 20 MG TAB PO SCH (09:00)
[2019-02-04] MEDS ORDERED: Isosorbide Mononitrate (ER) 30 MG TAB PO SCH (09:00)
[2019-02-04] MEDS: HumaLOG 300 UNITS/3 ML VIAL SC PRN ×2 (11:11→18:11)
[2019-02-04] MEDS ORDERED: Acetaminophen 650 MG/20.3 ML UDCUP PO PRN (11:41)
[2019-02-04] MEDS ORDERED: Acetaminophen 325 MG TAB PO PRN (11:45)
--- NOTE | 2019-02-04 14:33 | PDOC.HOSPP ---
- Subjective Encounter Date: 02/04/19 Encounter Time: 11:00 Subjective: Pt seen for followup re: chest pain. c/o 2/10 chest pain. No fevers or chills. - Objective Vital Signs & Weight: Vital Signs (12 hours) Temp Pulse Resp BP BP Pulse Ox 02/04/19 11:23 97.5 F L 99 20 153/81 H 96 02/04/19 08:10 98.8 F 84 18 123/66 95 02/04/19 03:35 98.1 F 85 16 122/67 96 Weight Weight 251 lb I&O: 02/03/19 02/04/19 02/05/19 06:59 06:59 06:59 Intake Total 242 Balance 242 Additional Labs: Accuchecks 02/04/19 02/04/19 02/03/19 10:43 04:40 20:46 POC Glucose 263 H 204 H 270 H 02/03/19 16:41 POC Glucose 187 H Labs and MARs reviewed by me EKG Reviewed by me: Yes (Tele: NSR) ROS - Review of Systems Constitutional: denies: fever, chills, sweats, weakness, malaise Cardiovascular: reports: chest pain. denies: palpitations, orthopnea, paroxysmal noc. dyspnea, edema, light headedness - Medication Medications: Active Medications Generic Name Dose Route Start Last Admin Trade Name Freq PRN Reason Stop Dose Admin Acetaminophen 650 mg 02/04/19 11:45 02/04/19 12:39 Tylenol PO 650 mg Q4H PRN Administration Headache Aspirin 81 mg 02/04/19 09:00 02/04/19 08:22 Aspirin Chewable PO 81 mg DAILY CHRYSTAL Administration Atorvastatin Calcium 40 mg 02/03/19 21:00 02/03/19 21:03 Lipitor PO 40 mg HS CHRYSTAL Administration Clonidine 0.2 mg 02/03/19 16:00 02/03/19 16:26 Nselndlt-Byh-2 TD 0.2 mg Q7DAYS CHRYSTAL Administration Diltiazem HCl 180 mg 02/04/19 09:00 02/04/19 08:22 Cardizem Cd PO 180 mg DAILY CHRYSTAL Administration Insulin Human Lispro 0 units 02/03/19 13:21 02/04/19 11:11 Humalog SC 4 unit .MILD SLIDING SCALE PRN Administration Mild Correctional Scale Isosorbide Mononitrate 30 mg 02/04/19 09:00 02/04/19 08:21 Imdur Er PO 30 mg DAILY CHRYSTAL Administration Lisinopril 40 mg 02/04/19 09:00 02/04/19 08:21 Zestril PO 40 mg DAILY CHRYSTAL Administration Metformin HCl 750 mg 02/04/19 08:00 02/04/19 08:22 Glucophage PO 750 mg QAM-WM CHRYSTAL Administration - Exam General - other findings: Morbid obesity Eye: anicteric sclera ENT: normocephalic atraumatic, moist mucosa Neck: supple Heart: RRR, no rubs Respiratory: CTAB Gastrointestinal: soft, non-tender, normal bowel sounds Extremities: no cyanosis Skin: normal turgor Neurological: no weakness Psychiatric: normal affect, normal behavior Hosp A/P (1) Chest pain Code(s): R07.9 - CHEST PAIN, UNSPECIFIED Status: Acute (2) Diabetes mellitus type 2 in obese Code(s): E11.69 - TYPE 2 DIABETES MELLITUS WITH OTHER SPECIFIED COMPLICATION; E66.9 - OBESITY, UNSPECIFIED Status: Chronic (3) Hypertension Code(s): I10 - ESSENTIAL (PRIMARY) HYPERTENSION Status: Chronic (4) Morbid obesity Code(s): E66.01 - MORBID (SEVERE) OBESITY DUE TO EXCESS CALORIES Status: Chronic - Plan Await cardiology input. Continue CCB, aspirin and statin. Continue diabetic diet, accuchecks and insulin sliding scale.
[2019-02-04 15:42] VITALS: BP 118/58; TEMP 97.9
[2019-02-04 15:43] LABS: #Eosinphils 0.4 thou/uL (0.0-0.7); #Lymphocytes 2.9 thou/uL (1.20-3.40); #Monocytes 0.5 thou/uL (0.11-0.59); %Eosinophils 5.1 % (0.0-10.0); %Lymphocytes 36.7 % (21.0-51.0); %Monocytes 6.9 % (0.0-10.0); %Neutrophils 51.3 % (42.0-75.0); Hemoglobin 12.6 g/dL (12.0-16.0); Mean Corpuscular HGB CONC 33.2 g/dL (32.0-36.0); Mean Corpuscular Hemoglobin 27.9 pg (27.0-31.0); Mean Corpuscular Volume 84.1 fL (78.0-98.0); Mean Platelet Volume 9.1 fL (7.4-10.4); Platelet Count 231 thou/uL (130-400); RBC Distribution Width 13.7 % (11.5-14.5); Red Blood Cell (RBC) Count 4.52 mill/uL (4.20-5.40); White Blood Cell (WBC) Count 7.9 thou/uL (4.8-10.8)
[2019-02-04 16:04] LABS: Anion Gap 9 mmol/L (10-20); BUN (Urea Nitrogen) 10 mg/dL (9.8-20.1); Calc. Creatinine Clearance 148 mL/min (70-130); Calcium 9.3 mg/dL (7.8-10.44); Carbon Dioxide 29 mmol/L (22-29); Chloride 100 mmol/L (98-107); Estimated GFR-MDRD 75; Glucose 262 mg/dL (70-105); Potassium 3.4 mmol/L (3.5-5.1); Sodium 135 mmol/L (136-145)
[2019-02-04] MEDS ORDERED: Potassium Chloride 20 MEQ TAB PO SCH (18:45)
--- NOTE | 2019-02-04 21:08 | DIS ---
DATE OF ADMISSION: 02/03/2019 DATE OF DISCHARGE: 02/04/2019 PRIMARY CARE PROVIDER: Priscilla Corral MD DISCHARGE DIAGNOSES: 1. Chest pain. 2. Chest pain most likely secondary to gastroenterology etiology. CONDITION OF PATIENT ON THE DAY OF DISCHARGE: Stable. I assessed Ms. Gonzalez on the day of discharge. Please refer to my history and physical note dated February 04, 2019, for further details regarding this face-to- face encounter. CONSULTATIONS DURING THIS HOSPITALIZATION: Cardiology, Dr. Carbajal. DISCHARGE MEDICATIONS: She has been started on Protonix 40 mg daily. Otherwise , no change was made to her pre-admission home medications as dictated by Dr. Hansen in his history and physical note dated February 01, 2019. HOSPITAL COURSE: Ms. Gonzalez is a pleasant 53-year-old lady, who was admitted to [facility] on February 03, 2019, on observation status for chest pain. CT angiogram of the chest did not show any evidence of pulmonary embolism. She was seen by Cardiology Service. She has been cleared for discharge home with addition of PPI to her medication regimen. Many thanks for allowing me to participate in your patient's care. Please feel free to contact me with any questions or concerns. On the day of discharge, she has a normal CBC, slightly decreased sodium of 135, slightly decreased potassium of 3.4 which is being replaced, and normal creatinine of 0.81. DISCHARGE DESTINATION: Home. FOLLOWUP APPOINTMENTS: With primary care provider in 3-5 days. Job ID: [id number] MTDD
--- NOTE | 2019-02-05 01:47 | CON ---
DATE OF CONSULTATION: HISTORY: Susu Gonzalez is a 53-year-old female white female with longstanding history of chest discomfort. After multiple admissions and negative Cardiolites , she underwent cardiac catheterizations on January 29, 2019. She had a 20% stenosis in the proximal circumflex, 20% first obtuse marginal, 80% lesion in distal branch of the first obtuse marginal which was a very small vessel. She had spasm of the right coronary artery while the left coronary was being injected. She had intense chest pressure as well as significant ST-segment elevation in 2, 3, and F. Once left coronary artery injection was completed, right 4 catheter was inserted. However , her pain has subsided by that time and the ST segments were back to normal. The right coronary artery had a 30% mid lesion and a 70% lesion of the right posterolateral. Ejection fraction was normal at 50% to 55%. She was placed on Cardizem and isosorbide mononitrate. 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 She stated she took two sublingual nitroglycerin, however, the nurses stated that she did not have nitroglycerin at home. She went to the hospital in [place] and then was transferred here. Total duration of her pain was over 2 hours. EKG did not show any acute changes. It is also of note that after catheterization, she had a period of aphasia but a totally negative stroke workup. PHYSICAL EXAMINATION: VITAL SIGNS: Blood pressure 118/58, pulse of 79. HEENT: PERRL. NECK: Supple. CHEST: Clear. CARDIAC: S1 and S2 normal without any S3, S4, or murmurs. ABDOMEN: Normal bowel sounds without tenderness or organomegaly. EXTREMITIES: Revealed no clubbing, cyanosis, or edema. NEUROLOGIC: Grossly intact. SKIN: Warm and dry. LABORATORY DATA: EKG reveals normal sinus rhythm and is unremarkable. CBC is unremarkable. Sodium 135, potassium 3.4, chloride 100, carbon dioxide 29, BUN 10, and creatinine 0.81. Troponin I 0.074. IMPRESSION: 1. Probable noncardiac chest pain with 2 hours of continual chest pain not relieving with sublingual nitroglycerin and no significant increase in cardiac enzymes. 2. Right coronary artery spasm. 3. Two-vessel coronary artery disease for medical therapy. 4. Hypertension. 5. Diabetes. 6. Hypercholesterolemia. 7. Obesity. RECOMMENDATIONS: I do not feel any further cardiac evaluation is warranted and I do not think this is cardiac chest pain. Consideration should be given to empirically placing her on a proton pump inhibitor to try to lessen the possibility of chest discomfort in the future. With her coronary artery spasm, one sublingual nitroglycerin will usually totally alleviate the pain almost immediately. I am not certain that she was taking the Cardizem or the long-acting nitrate at home however. Job ID: [id number] [facility]
== END 2019-02-04 19:36 | disposition home or self-care (01) ==
LOC: ERS 07:37 → 2SW 10:25
PROVIDERS: ADMIT Internal Medicine; ATTEND Internal Medicine
DX: R07.2 Precordial pain (principal); I25.10 Atherosclerotic heart disease of native coronary artery without angina pectoris; E11.69 Type 2 diabetes mellitus with other specified complication; E66.01 Morbid (severe) obesity due to excess calories; I10 Essential (primary) hypertension; E78.00 Pure hypercholesterolemia, unspecified; E87.6 Hypokalemia; Z68.41 Body mass index [BMI] 40.0-44.9, adult; Z79.82 Long term (current) use of aspirin; Z79.899 Other long term (current) drug therapy; Z79.84 Long term (current) use of oral hypoglycemic drugs; Z88.5 Allergy status to narcotic agent
CPT/HCPCS: 36415; 36416; 71275; 80048; 82553; 84703; 85025; 93005; 94760; 96374; 96376; G0378; J2405; Q9966